=== PATIENT | female | born 1960 | race Caucasian/White ===

== ENCOUNTER → 2017-11-15 17:01 | Outpatient (CLI) | payer OTHER, SELFPAY | PROVIDERS: Visit Provider Physician Assistant | DX: L03.90 Cellulitis, unspecified (principal) | CPT/HCPCS: 87070; 87075; 87077; 87147; 87186; 87205 ==

== ENCOUNTER → 2018-07-12 17:55 | Outpatient (CLI) | payer OTHER, SELFPAY ==
--- NOTE | 2018-07-12 17:58 | DI.RAD.S_ITS ---
PROCEDURE: XR KNEE LT 1TO2V INDICATIONS: pain, swelling Left knee TECHNIQUE: 3 views of the knee were acquired. COMPARISON: None. FINDINGS: Bones: No fractures or dislocations. No suspicious bony lesions. Degenerative spurring. No joint space narrowing Soft tissues: No joint effusion. No suspicious soft tissue calcifications. IMPRESSION: Mild degenerative changes. If the patient's pain or other symptoms persist, consider further evaluation with MRI Dictated by: Mike Agustin M.D. on 07/13/2018 at 8:48 Approved by: Mike Agustin M.D. on 07/13/2018 at 8:50
== END ==
PROVIDERS: PCP Family Medicine
DX: M25.562 Pain in left knee (principal); M25.462 Effusion, left knee; C57.00 Malignant neoplasm of unspecified fallopian tube
CPT/HCPCS: 73560

== ENCOUNTER 2019-04-10 07:08 | Emergency (ER) | payer OTHER, SELFPAY ==
[2019-04-10] VITALS (7 sets, daily range): BP systolic 156–226; BP diastolic 72–107; PULSE 60–76; RESP 15–16; TEMP 36.9; O2SAT 95–98; BMI 27.4
--- NOTE | 2019-04-10 07:40 | ED_ITS ---
HPI - General Adult General Chief complaint: Hypertension Stated complaint: head pain/blood pressure 178/120 Time Seen by Provider: 04/10/19 07:22 Source: patient Mode of arrival: EMS Limitations: no limitations History of Present Illness HPI narrative: Patient comes emergency department complaining of a bad headache for the last several days. She also states that her blood pressure has been very high. 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 The patient states she has been told but both the headaches and the blood pressure are known side effects of the Avastin. She was started on lisinopril by Dr. Solano and a few weeks ago, had her dose doubled to 20 mg daily. She states, however, that it does not seem to be helping, and then actually, her blood pressure is worse now. She states she was perfectly healthy before being diagnosed with cancer 7 and half years ago, and never had an issue with hypertension. The patient denies any numbness, tingling, or weakness. No visual changes or slurred speech. The patient denies any chest pain or shortness of breath, though she does state that sometimes when her blood pressure goes up, she gets a throbbing feeling in her chest. She states that her headache today, as is typical, is located mainly on her left side. She states it seems worse than usual, but is of the same character as prior headaches. No other complaints at this time. Related Data Home Medications Medication Instructions Recorded Confirmed aspirin 81 mg tablet,delayed 81 mg PO DAILY 11/15/17 03/07/19 release docusate sodium 50 mg capsule 50 mg PO DAILY 01/26/18 03/07/19 ferrous sulfate 325 mg (65 mg 325 mg PO DAILY tab 01/26/18 03/07/19 iron) tablet ondansetron HCl 4 mg tablet 4 mg PO BID-TID PRN 01/26/18 03/07/19 omeprazole 40 mg PO DAILY 02/14/19 03/07/19 Previous Rx's Medication Instructions Recorded amlodipine 5 mg PO DAILY #30 tab 05/17/18 lidocaine-prilocaine 1 ea TOPICAL DAILY #30 g 11/02/18 lisinopril 20 mg PO DAILY #30 tab 03/07/19 Allergies Allergy/AdvReac Type Severity Reaction Status Date / Time paclitaxel Allergy Severe chemical Verified 04/10/19 07:20 hepatitis sulfite Allergy Severe Anaphylaxis Verified 04/10/19 07:20 sulfamethoxazole Allergy rash and Verified 04/10/19 07:20 [From Bactrim] hives trimethoprim [From Bactrim] Allergy rash and Verified 04/10/19 07:20 hives Review of Systems Constitutional Constitutional: Denies chills, Denies fatigue, Denies fever(s), Denies frequent falls, Reports headache(s), Denies lethargy and Denies weakness Eyes Eyes: Denies change in vision, Denies eye discharge, Denies irritation and Denies loss of vision ENT Ears, Nose, Mouth, and Throat: Denies change in voice, Denies dizziness, Reports headache(s), Denies neck pain, Denies sore throat and Denies throat swelling Cardiovascular Cardiovascular: Denies chest pain, Denies irregular heart rhythm, Denies lightheadedness, Denies palpitations, Denies dyspnea, Denies dyspnea on exertion and Denies orthopnea Respiratory Respiratory: Denies cough, Denies dyspnea, Denies dyspnea on exertion and Denies wheezing Gastrointestinal Gastrointestinal: Denies abdominal pain, Denies change in bowel habits, Denies diarrhea, Denies nausea and Denies vomiting Genitourinary Genitourinary: Denies hematuria, Denies flank pain, Denies urinary incontinence and Denies urinary urgency Musculoskeletal Musculoskeletal: Denies back pain, Denies muscle weakness, Denies neck pain, Denies numbness and Denies tingling Integumentary/Breasts Skin/Breast: Denies pruritus, Denies erythema, Denies rash and Denies wounds Neurologic Neurologic: Denies behavioral changes, Denies confusion, Denies dizziness, Denies frequent falls, Reports headache(s), Denies loss of vision, Denies numbness, Denies tingling and Denies weakness Psychiatric Psychiatric: Denies anxiety, Denies behavioral changes, Denies confusion, Denies depression, Denies homicidal ideation and Denies suicidal ideation Endocrine Endocrine: Denies fatigue, Denies flushing and Denies palpitations Hematologic/Lymphatic Hematologic/Lymphatic: Denies easy bruising Allergic/Immunologic Allergic/Immunologic: Denies urticaria, Denies throat swelling and Denies wheezing Patient History Medical History (Updated 04/10/19 @ 10:06 by Johanna Blue MD) Cancer of fallopian tube (Acute) HTN (hypertension) (Acute) Surgical History H/O pelvic surgery (Acute) Social History Smoking Status: Never smoker alcohol intake: current (Rare) Smoking Status: Never smoker Exam Initial Vital Signs Initial Vital Signs: Vital Signs Temperature 98.4 F 04/10/19 07:17 Pulse Rate 76 04/10/19 07:17 Respiratory Rate 16 04/10/19 07:17 Blood Pressure 226/107 H 04/10/19 07:17 Pulse Oximetry 98 04/10/19 07:17 Const General: cooperative and well developed Nutritional Appearance: well nourished Orientation: alert, awake, oriented x3 and not confused HENMT Head: normocephalic and atraumatic Ears: external ears normal Nose: external nose normal and No nasal discharge Face and sinus: face symmetric and No dry mucous membranes Mouth: oral mucosae normal and moist mucous membranes Teeth and gingiva: dentition normal Eyes General: appearance normal, both eyes and all related structures Eyelids: eyelids normal Conjunctivae: conjunctivae normal Sclera: sclerae normal Pupils: PERRL EOM: EOM intact bilaterally Neck Neck: normal visual inspection, trachea midline, No lymphadenopathy, No midline deformity and No JVD Lymphatic: No lymphedema Chest Chest: normal inspection of the chest Resp Effort & Inspection: normal respiratory effort, able to speak in complete sentences, no respiratory distress and no use of accessory muscles Auscultation: clear to auscultation bilaterally, no rales, no rhonchi and no wheezes Cardio Rate: regular rate Rhythm: regular rhythm Heart Sounds: no click, no gallops, no murmurs and no rubs Pulses: normal peripheral pulses GI Inspection: non-distended Palpation: soft, no hepatosplenomegaly, No guarding, No pulsatile mass and No tender Auscultation: normal bowel sounds Back/Spine/Pelvis Back: No CVA tenderness Cervical Spine: cervical ROM normal and No pain with cervical ROM Thoracic/Lumbar Spine: thoracic and lumbar spine normal to inspection Skin General: no rashes or lesions noted, No jaundice and No petechiae Neuro General: alert, oriented x3, gait normal and no focal motor deficits Speech: speech normal Extrem General: full ROM, no clubbing, cyanosis or edema, no pedal edema and no calf tenderness Psych Appearance: well kempt Mental Status: mental status grossly normal Attitude: cooperative Thought Content: normal and suicidality Judgment: judgment good Course Course Course Narrative: Patient was treated symptomatically for her headache and her blood pressure, which was quite high in the emergency department. Her blood pressure did improve nicely in the ED, and I did discuss with her that we would go ahead and double her lisinopril. The patient has an upcoming appointment with Dr. Solano in the near future, at which time further adjustments to the p atient's antihypertensive regimen can be discussed. We've discussed home management of symptoms, as well as the usual indications for return. Orders Ordered: Discontinued Medications Hydromorphone HCl (Dilaudid) 0.5 mg IV NOW ONE Stop: 04/10/19 07:39 Last Admin: 04/10/19 07:56 Dose: 0.5 mg Documented by: DOMINIQUE Hydromorphone HCl (Dilaudid) 0.5 mg IV NOW ONE Stop: 04/10/19 10:02 Last Admin: 04/10/19 10:10 Dose: 0.5 mg Documented by: DOMINIQUE Sodium Chloride (Normal Saline 0.9%) 1,000 mls @ 1,000 mls/hr IV BOLUS ONE Stop: 04/10/19 08:37 Last Infusion: 04/10/19 09:33 Dose: 0 mls/hr Documented by: Admin: 04/10/19 07:55 Dose: 1,000 mls/hr Documented by: DOMINIQUE Ketorolac Tromethamine (Toradol) 30 mg IV NOW ONE Stop: 04/10/19 07:39 Last Admin: 04/10/19 07:56 Dose: 30 mg Documented by: DOMINIQUE Labetalol HCl (Trandate) 20 mg IV NOW ONE Stop: 04/10/19 07:39 Last Admin: 04/10/19 07:56 Dose: 20 mg Documented by: DOMINIQUE Ondansetron HCl (Zofran) 4 mg IV NOW ONE Stop: 04/10/19 07:39 Last Admin: 04/10/19 07:56 Dose: 4 mg Documented by: DOMINIQUE Vital Signs Vital signs: Vital Signs - 8 hr 04/10/19 07:17 Temperature 98.4 F Pulse Rate 76 Respiratory Rate 16 Blood Pressure 226/107 H Pulse Oximetry 98 Medical Decision Making Medical Records Medical records reviewed: Yes I reviewed the patient's medical records. Discharge Plan Departure Patient Disposition: Home Clinical Impression: HTN (hypertension) Qualifiers: Hypertension type: other secondary hypertension Qualified Code(s): I15.8 - Other secondary hypertension Cancer of fallopian tube Qualifiers: Laterality: unspecified laterality Qualified Code(s): C57.00 - Malignant neoplasm of unspecified fallopian tube Headache Qualifiers: Headache type: unspecified Headache chronicity pattern: acute headache Intractability: not intractable Qualified Code(s): R51 - Headache Discharge Date/Time: 04/10/19 11:09 Instructions: DI for High Blood Pressure Activity Restrictions/Additional Instructions: We will plan to increase your lisinopril dose to 40 mg daily. Please discuss your blood pressure issues with Dr. Solano when you see him next week. Prescriptions: No Action aspirin [Adult Low Dose Aspirin] 81 mg tablet,delayed release (DR/EC) 81 mg PO DAILY RF: 0 ondansetron HCl [Zofran] 4 mg tablet 4 mg PO BID-TID PRN (Reason: Nausea) RF: 0 ferrous sulfate 325 mg (65 mg iron) tablet 325 mg PO DAILY RF: 0 docusate sodium 50 mg capsule 50 mg PO DAILY RF: 0 amlodipine 5 mg Tablet 5 mg PO DAILY Qty: 30 RF: 3 lidocaine-prilocaine 2.5-2.5 % Cream 1 ea topical DAILY Qty: 30 RF: 1 omeprazole 40 mg Capsule,Delayed Release(Dr/Ec) 40 mg PO DAILY RF: 0 lisinopril 20 mg Tablet 20 mg PO DAILY Qty: 30 RF: 6 Referrals: Blanka Ureña DO [Primary Care Provider] -
[2019-04-10] MEDS: SODIUM CHLORIDE 0.9% 1,000 ML 1000 ML IV (07:55)
[2019-04-10] MEDS: KETOROLAC 60 MG/2 ML VIAL 30 MG IV (07:56)
[2019-04-10] MEDS: LABETALOL 20 MG/4 ML SYRINGE IV (07:56)
[2019-04-10] MEDS: HYDROMORPHONE 0.5 MG INJ IV ×2 (07:56→10:10)
[2019-04-10] MEDS: ONDANSETRON 4 MG/2 ML INJ IV (07:56)
== END 2019-04-10 11:09 | disposition home or self-care (01) ==
PROVIDERS: Emergency Provider Emergency Medicine; Family Provider Family Medicine; PCP Family Medicine
DX: I10 Essential (primary) hypertension (principal); R51 Headache; C57.00 Malignant neoplasm of unspecified fallopian tube
CPT/HCPCS: 36415; 93005; 96361; 96374; 96375; 96376; 99284; J1170; J1642; J1885; J2405

== ENCOUNTER 2019-04-14 18:17 | Emergency (ER) | payer OTHER, SELFPAY ==
[2019-04-14 18:24] VITALS: BP 204/98; PULSE 70; RESP 20; TEMP 36.4; O2SAT 99; BMI 27.4
--- NOTE | 2019-04-14 18:45 | ED_ITS ---
HPI - General Adult General Chief complaint: Hypertension Stated complaint: HIGH BLOOD PRESSURE PAIN Time Seen by Provider: 04/14/19 18:32 Source: patient Mode of arrival: Family Vehicle Limitations: no limitations History of Present Illness HPI narrative: 58-year-old female with a history of dag coater cancer. Is currently on a medication for this through Oncology. She was told that this medication frequently causes high blood pressure and headaches. Has had headaches in the past. Has been seen here in the emergency department within the past 2 weeks for headache. Was given medications which seemed to improve it. She is also on blood pressure medication. She was seen by another provider earlier today because she has had consistent elevations in her blood pressure. Was given a prescription for 2nd blood pressure medication which she was at the pharmacy today filling when she had a fairly sudden onset of left-sided headache. She states that this headache is like her typical headaches just worse. Does have light sensitivity. Related Data Home Medications Medication Instructions Recorded Confirmed aspirin 81 mg tablet,delayed 81 mg PO DAILY 11/15/17 04/14/19 release docusate sodium 50 mg capsule 50 mg PO DAILY 01/26/18 04/14/19 ferrous sulfate 325 mg (65 mg 325 mg PO DAILY tab 01/26/18 04/14/19 iron) tablet ondansetron HCl 4 mg tablet 4 mg PO BID-TID PRN 01/26/18 04/14/19 omeprazole 40 mg PO DAILY 02/14/19 04/14/19 lisinopril 20 mg tablet 20 mg PO DAILY tab 04/14/19 Previous Rx's Medication Instructions Recorded lidocaine-prilocaine 1 ea TOPICAL DAILY #30 g 11/02/18 amoxicillin 500 mg capsule 500 mg PO TID #30 cap 04/14/19 lisinopril 20 mg tablet 20 mg PO BID #180 tab 04/14/19 metoprolol succinate 25 mg 25 mg PO BEDTIME #30 tab 04/14/19 tablet,extended release 24 hr Allergies Allergy/AdvReac Type Severity Reaction Status Date / Time paclitaxel Allergy Severe chemical Verified 04/14/19 18:28 hepatitis sulfite Allergy Severe Anaphylaxis Verified 04/14/19 18:28 sulfamethoxazole Allergy rash and Verified 04/14/19 18:28 [From Bactrim] hives trimethoprim [From Bactrim] Allergy rash and Verified 04/14/19 18:28 hives Review of Systems Constitutional Constitutional: Denies fever(s) and Reports headache(s) Eyes Eyes: Reports photophobia ENT Ears, Nose, Mouth, and Throat: Reports headache(s) Cardiovascular Cardiovascular: Denies chest pain and Denies dyspnea Respiratory Respiratory: Denies dyspnea Gastrointestinal Gastrointestinal: Denies abdominal pain and Reports nausea Musculoskeletal Musculoskeletal: Denies myalgias and Denies arthralgias Integumentary/Breasts Skin/Breast: Denies rash Neurologic Neurologic: Denies behavioral changes and Reports headache(s) Psychiatric Psychiatric: Denies behavioral changes Hematologic/Lymphatic Hematologic/Lymphatic: Denies easy bleeding and Denies easy bruising Patient History Medical History Cancer of fallopian tube (Acute) HTN (hypertension) (Acute) Social History Smoking Status: Never smoker alcohol intake: current (Rare) Smoking Status: Never smoker alcohol intake frequency: 0-2 drinks per day Substance Use Type: does not use Exam Initial Vital Signs Initial Vital Signs: Vital Signs Temperature 97.6 F 04/14/19 18:24 Pulse Rate 70 04/14/19 18:24 Respiratory Rate 20 04/14/19 18:24 Blood Pressure 204/98 H 04/14/19 18:24 Pulse Oximetry 99 04/14/19 18:24 Const General: cooperative, well developed and well groomed Limitations: mental status not altered HENMT Head: normal to inspection and normocephalic Resp Effort & Inspection: normal respiratory effort Cardio Rate: regular rate Skin Lesions: no lesions Rashes: no rashes Neuro General: alert, awake and oriented x3 Cranial Nerves: CN's II-XI intact bilaterally Cognition: normal cognition Speech: speech normal Motor: muscle tone normal throughout Extrem General: normal to inspection and capillary refill normal Psych Appearance: well kempt Scores GCS [place] coma scale eye opening: Spontaneous [place] coma scale verbal response: Orientated [place] coma scale motor response: Obey commands [place] coma scale total score: 15 Course Orders Ordered: ED Orders 04/14/19 18:52 CT head/brain wo con Stat 04/14/19 18:59 EKG-12 Lead Stat 04/14/19 19:25 Complete Blood Count AUTO DIFF Stat Comprehensive Metabolic Panel Stat Lipase Stat Discontinued Medications Diphenhydramine HCl (Benadryl) 25 mg IV NOW ONE Stop: 04/14/19 18:51 Last Admin: 04/14/19 19:37 Dose: 25 mg Documented by: AMEENA Heparin Sodium (Porcine) (Heparin Flush (Port)) 500 unit IV PRN PRN PRN Reason: Flush Last Admin: 04/14/19 21:25 Dose: 500 unit Documented by: AMEENA Hydromorphone HCl (Dilaudid) 1 mg IV NOW ONE Stop: 04/14/19 20:37 Last Admin: 04/14/19 20:45 Dose: 1 mg Documented by: AMEENA Sodium Chloride (Normal Saline 0.9%) 1,000 mls @ 1,000 mls/hr IV BOLUS ONE Stop: 04/14/19 19:49 Last Infusion: 04/14/19 21:20 Dose: 0 mls/hr Documented by: Admin: 04/14/19 19:37 Dose: 1,000 mls/hr Documented by: AMEENA Lidocaine HCl (Xylocaine 1% (Pf)) 2 ml INJ NOW ONE Stop: 04/14/19 19:09 Last Admin: 04/14/19 19:38 Dose: 0.5 ml Documented by: AMEENA Metoclopramide HCl (Reglan) 10 mg IV NOW ONE Stop: 04/14/19 18:51 Last Admin: 04/14/19 19:37 Dose: 10 mg Documented by: AMEENA Vital Signs Vital signs: Vital Signs - 8 hr 04/14/19 18:24 04/14/19 19:39 04/14/19 20:47 Temperature 97.6 F Pulse Rate 70 79 69 Respiratory Rate 20 20 Blood Pressure 204/98 H Blood Pressure [Left Arm] 194/98 H 184/91 H Pulse Oximetry 99 100 98 04/14/19 21:34 Temperature Pulse Rate 70 Respiratory Rate 18 Blood Pressure 161/75 H Blood Pressure [Left Arm] Pulse Oximetry 97 Medical Decision Making Lab Data Lab results reviewed: Yes I reviewed the patient's lab results. Result diagrams: 04/14/19 19:25 04/14/19 19:25 Labs: Lab Results 04/14/19 04/14/19 Range/Units 19:25 19:25 WBC 6.8 (4.5-11.0) X10^3/uL RBC 5.16 (4.0-5.2) X10^6/uL Hgb 13.3 (12.0-16.0) g/dL Hct 40.0 (36-46) % MCV 77.5 L (80-100) fL MCH 25.8 L (26-34) PG MCHC 33.3 (30-36) % RDW 13.2 (11.6-14.8) % Plt Count 210 (150-400) X10^3/uL Neut % (Auto) 72.9 (50-75) % Lymph % (Auto) 17.2 L (25-40) % [place] % (Auto) 8.0 (3-14) % Eos % (Auto) 1.0 L (2-4) % Baso % (Auto) 0.9 (0-2) % Neut # (Auto) 4900 (0123-1599) /uL Lymph # (Auto) 1200 (4698-6580) /uL [place] # (Auto) 500 (0-900) /uL Eos # (Auto) 100 (0-450) /uL Baso # (Auto) 100 (0-100) /uL Sodium 134 L (137-145) mmol/L Potassium 3.7 (3.4-5.1) mmol/L Chloride 98 (98-107) mmol/L Carbon Dioxide 23 (22-32) mmol/L BUN 15 (7-17) mg/dL Creatinine 0.70 (0.52-1.04) mg/dL Estimated GFR > 60.0 (>60) mL/min BUN/Creatinine Ratio 21.4 (6-22) Glucose 112 H (70-100) mg/dL Calcium 9.8 (8.4-10.2) mg/dL Total Bilirubin 0.3 (0.2-1.3) mg/dL AST 40 H (14-36) IU/L ALT 38 H (<35) IU/L Alkaline Phosphatase 90 (38-126) U/L Total Protein 7.8 (6.3-8.2) g/dL Albumin 4.5 (3.5-5.0) g/dL Globulin 3.3 (1.7-4.1) g/dL Albumin/Globulin Ratio 1.4 (1.0-2.8) Lipase 127 (23-300) U/L Imaging Data CT scan - head: Radiologist's Impression: [address] [address] [address] Scan Report Signed Patient: Maura Ramirez RMR#: [id number] : 1960Acct:[id number] Age/Sex: 58 / FDate of Service: 04/14/19 Loc: ED Accession Number: [id number] Procedure: CT head/brain wo con Ordering Provider: Freedom Caballero D.O. PROCEDURE: CT HEAD/BRAIN WO CON INDICATIONS: Headache, hypertension, eval for SAH TECHNIQUE: Noncontrast 4.5 mm thick angled axial sections acquired from the foramen magnum to the vertex, with coronal and sagittal reformats. For radiation dose reduction, the following was used: automated exposure control, adjustment of mA and/or kV according to patient size. COMPARISON: None. FINDINGS: Image quality: Excellent. CSF spaces: Basal cisterns are patent. No extra-axial fluid collections. Ventricles are normal in size and shape. Brain: No midline shift. No intracranial masses or hemorrhage. Lee-white matter interface is normal. Skull and face: Calvarium and visualized facial bones are intact, without suspicious lesions. Sinuses: Visualized sinuses and mastoids are clear. IMPRESSION: No acute intracranial findings. Dictated by: Barbra Khan M.D. on 04/14/2019 at 19:16 Approved by: Barbra Khan M.D. on 04/14/2019 at 19:1 ECG Data Attestation: I personally reviewed and interpreted this ECG as follows: Prior ECG tracings: not available for review Interpretation: Sinus rhythm Ventricular rate is 65 Normal axis Normal QRS Normal QTC Nonspecific ST T wave changes MDM Narrative Medical decision making narrative: Patient with a fairly sudden onset of left- sided headache. She is also hypertensive. She did state that this headache feels like prior headaches in character but just worse. Given the sudden onset of the headache and the fact that she is hypertensive a head CT was performed for evaluation of subarachnoid hemorrhage. This was done within 6 hours of the onset of the headache and is unremarkable. Her medic rate is greater than 30. She initially minimal improvement with medications. Was then given Toradol whic h did seem to help her headache all that much and then was given Dilaudid. She states this took her headache completely away. Her blood pressure also improved after her headache improved. I do suspect that the elevation of blood pressure is secondary to a baseline elevation complicated by the pain associated with the headache. Does appear that the headaches are also related to the cancer medic ations she is currently taking. We did discuss taking her blood pressure at home. We will hold on a lumbar puncture for now. She was given return precautions and follow-up instructions. She expressed understanding and agreement plan. Discharge Plan Departure Patient Disposition: Home Clinical Impression: HTN (hypertension) Qualifiers: Hypertension type: unspecified Qualified Code(s): I10 - Essential (primary) hypertension Headache Qualifiers: Headache type: unspecified Headache chronicity pattern: unspecified pattern Intractability: not intractable Qualified Code(s): R51 - Headache Discharge Date/Time: 04/14/19 21:37 Instructions: DI for High Blood Pressure Activity Restrictions/Additional Instructions: Continue all of your medications as directed. Keep all of your scheduled med [facility] appointments. Return to the emergency department for any new or worsening symptoms Prescriptions: No Action aspirin [Adult Low Dose Aspirin] 81 mg tablet,delayed release (DR/EC) 81 mg PO DAILY RF: 0 ondansetron HCl [Zofran] 4 mg tablet 4 mg PO BID-TID PRN (Reason: Nausea) RF: 0 ferrous sulfate 325 mg (65 mg iron) tablet 325 mg PO DAILY RF: 0 docusate sodium 50 mg capsule 50 mg PO DAILY RF: 0 lisinopril 20 mg tablet 20 mg PO DAILY RF: 0 metoprolol succinate 25 mg tablet extended release 24 hr 25 mg PO BEDTIME Qty: 30 RF: 1 amoxicillin 500 mg capsule 500 mg PO TID Qty: 30 RF: 0 lisinopril 20 mg tablet 20 mg PO BID Qty: 180 RF: 1 lidocaine-prilocaine 2.5-2.5 % Cream 1 ea topical DAILY Qty: 30 RF: 1 omeprazole 40 mg Capsule,Delayed Release(Dr/Ec) 40 mg PO DAILY RF: 0 Referrals: Blanka Ureña DO [Primary Care Provider] -
--- NOTE | 2019-04-14 18:52 | DI.CT.S_ITS ---
PROCEDURE: CT HEAD/BRAIN WO CON INDICATIONS: Headache, hypertension, eval for SAH TECHNIQUE: Noncontrast 4.5 mm thick angled axial sections acquired from the foramen magnum to the vertex, with coronal and sagittal reformats. For radiation dose reduction, the following was used: automated exposure control, adjustment of mA and/or kV according to patient size. COMPARISON: None. FINDINGS: Image quality: Excellent. CSF spaces: Basal cisterns are patent. No extra-axial fluid collections. Ventricles are normal in size and shape. Brain: No midline shift. No intracranial masses or hemorrhage. Lee-white matter interface is normal. Skull and face: Calvarium and visualized facial bones are intact, without suspicious lesions. Sinuses: Visualized sinuses and mastoids are clear. IMPRESSION: No acute intracranial findings. Dictated by: Barbra Khan M.D. on 04/14/2019 at 19:16 Approved by: Barbra Khan M.D. on 04/14/2019 at 19:17
[2019-04-14 19:34] LABS: Add Manual Diff / Slide Review NO; Basophils Absolute Auto 100 /uL (0-100); Basophils Percent Auto 0.9 % (0-2); Eosinophils Absolute Auto 100 /uL (0-450); Hemoglobin 13.3 g/dL (12.0-16.0); Lymphocytes Absolute Auto 1200 /uL (1100-4500); Lymphocytes Percent Auto 17.2 % (25-40); Mean Corpuscular HGB Conc 33.3 % (30-36); Mean Corpuscular Hemoglobin 25.8 PG (26-34); Mean Corpuscular Volume 77.5 fL (80-100); Monocytes Absolute Auto 500 /uL (0-900); Neutrophils Absolute Auto 4900 /uL (1500-7000); Neutrophils Percent Auto 72.9 % (50-75); Platelet Count 210 X10^3/uL (150-400); Red Blood Cell Count 5.16 X10^6/uL (4.0-5.2); Red Cell Distribution Width 13.2 % (11.6-14.8); White Blood Cell Count 6.8 X10^3/uL (4.5-11.0)
[2019-04-14] MEDS: diphenhydrAMINE 50 MG/ML VIAL 25 MG IV (19:37)
[2019-04-14] MEDS: SODIUM CHLORIDE 0.9% 1,000 ML 1000 ML IV (19:37)
[2019-04-14] MEDS: METOCLOPRAMIDE 10 MG/2 ML INJ IV (19:37)
[2019-04-14] MEDS: LIDOCAINE 1% (PF) 2 ML INJ (19:38)
[2019-04-14 19:39] VITALS: BP 194/98; PULSE 79; RESP 20; O2SAT 100
[2019-04-14 19:47] LABS: Alanine Aminotransferase 38 IU/L (<35); Albumin 4.5 g/dL (3.5-5.0); Albumin Globulin Ratio 1.4 (1.0-2.8); Alkaline Phosphatase 90 U/L (38-126); Aspartate Aminotransferase 40 IU/L (14-36); BUN Creatinine Ratio 21.4 (6-22); Bilirubin Total 0.3 mg/dL (0.2-1.3); Blood Urea Nitrogen 15 mg/dL (7-17); Calcium 9.8 mg/dL (8.4-10.2); Carbon Dioxide 23 mmol/L (22-32); Chloride 98 mmol/L (98-107); Estimated Glomerular Filt Rate > 60.0 mL/min (>60); Globulin 3.3 g/dL (1.7-4.1); Glucose 112 mg/dL (70-100); HEMOLYSIS < 15 (0-50); Lipase 127 U/L (23-300); Potassium 3.7 mmol/L (3.4-5.1); Sodium 134 mmol/L (137-145); Total Protein 7.8 g/dL (6.3-8.2)
[2019-04-14] MEDS: HYDROMORPHONE 1 MG INJ IV (20:45)
[2019-04-14 20:47] VITALS: BP 184/91; PULSE 69; O2SAT 98
[2019-04-14 21:34] VITALS: BP 161/75; PULSE 70; RESP 18; O2SAT 97
== END 2019-04-14 21:37 | disposition home or self-care (01) ==
PROVIDERS: Emergency Provider Emergency Medicine; Family Provider Family Medicine; PCP Family Medicine
DX: I10 Essential (primary) hypertension (principal); R51 Headache; C57.00 Malignant neoplasm of unspecified fallopian tube
CPT/HCPCS: 36415; 70450; 80053; 83690; 85025; 93005; 96361; 96374; 96375; 99284; 99285; J1170; J1200; J1642; J2765

== ENCOUNTER 2020-04-15 20:16 | Emergency (ER) | payer OTHER, SELFPAY ==
[2020-04-15 20:22] VITALS: BP 180/97; PULSE 75; RESP 20; TEMP 37.6; O2SAT 97
[2020-04-15 21:04] LABS: Add Manual Diff / Slide Review NO; Basophils Absolute Auto 100 /uL (0-100); Basophils Percent Auto 1.3 % (0-2); Eosinophils Absolute Auto 500 /uL (0-450); Hematocrit 35.3 % (36-46); Hemoglobin 11.5 g/dL (12.0-16.0); Lymphocytes Absolute Auto 1600 /uL (1100-4500); Lymphocytes Percent Auto 18.9 % (25-40); Mean Corpuscular HGB Conc 32.7 % (30-36); Mean Corpuscular Hemoglobin 24.6 PG (26-34); Mean Corpuscular Volume 75.3 fL (80-100); Monocytes Absolute Auto 500 /uL (0-900); Monocytes Percent Auto 6.6 % (3-14); Neutrophils Absolute Auto 5500 /uL (1500-7000); Neutrophils Percent Auto 67.2 % (50-75); Platelet Count 250 X10^3/uL (150-400); Red Cell Distribution Width 13.5 % (11.6-14.8); White Blood Cell Count 8.3 X10^3/uL (4.5-11.0)
[2020-04-15 21:06] VITALS: PULSE 84; RESP 20; O2SAT 99
[2020-04-15 21:17] LABS: Alanine Aminotransferase 18 IU/L (<35); Albumin Globulin Ratio 1.1 (1.0-2.8); Alkaline Phosphatase 72 U/L (38-126); Aspartate Aminotransferase 26 IU/L (14-36); BUN Creatinine Ratio 20.6 (6-22); Bilirubin Total 0.2 mg/dL (0.2-1.3); Blood Urea Nitrogen 14 mg/dL (7-17); Calcium 9.1 mg/dL (8.4-10.2); Carbon Dioxide 27 mmol/L (22-32); Chloride 96 mmol/L (98-107); Estimated Glomerular Filt Rate > 60.0 mL/min (>60); Globulin 3.5 g/dL (1.7-4.1); Glucose 102 mg/dL (70-100); HEMOLYSIS < 15 (0-50); Potassium 4.1 mmol/L (3.4-5.1); Sodium 128 mmol/L (137-145); Total Protein 7.5 g/dL (6.3-8.2)
[2020-04-15 21:34] LABS: COVID19 -Nasal RAPID Negative (Negative)
[2020-04-15 21:50] LABS: Creatine Kinase 71 U/L (30-135)
[2020-04-15 22:03] LABS: Troponin I < 0.012 ng/mL (0.01-0.034)
--- NOTE | 2020-04-15 22:15 | ED_ITS ---
HPI - General Adult General Chief complaint: Shortness of Breath/Dyspnea Stated complaint: HARD TIME BREATHING Time Seen by Provider: 04/15/20 20:39 Source: patient and family Mode of arrival: Ambulatory Limitations: no limitations History of Present Illness HPI narrative: Patient is a 59-year-old female. Has a history of fallopian tube cancer. Is currently under the care of local oncology and also the [facility]. She is here for evaluation of shortness of breath. She states that for the past several days/week she has had episodes where she has become very short of breath. She states that it causes her to have a hard time laying flat. It does not seem to last for an extended period of time and after the episode passes she is able to lay flat to get sleep. She states that it does occur during the day and in the evening. She denies any fevers. No chest pain. Has had a cough. She stated that she did bring this up to her oncologist when she had an appointment with him approximately 1 week ago. She stated that he advised that she go see your nose and throat as there was concern about a potential postnasal drip and sinus issues. She is scheduled to see her oncologist at [facility] at the beginning of next week and is scheduled to have routine CT scan of her chest abdomen pelvis for screening purposes given her cancer. She denies any lower extremity swelling. Has tried cough drops without any improvement. Related Data Home Medications Medication Instructions Recorded Confirmed aspirin 81 mg tablet,delayed 81 mg PO DAILY 11/15/17 02/08/20 release docusate sodium 50 mg capsule 50 mg PO PRN PRN 01/26/18 02/08/20 ondansetron HCl 4 mg tablet 4 mg PO BID-TID PRN 01/26/18 02/08/20 omeprazole 40 mg PO DAILY 02/14/19 02/08/20 Previous Rx's Medication Instructions Recorded lidocaine-prilocaine 1 ea TOPICAL DAILY #30 g 10/26/19 lisinopril 20 mg tablet See Rx Instructions .ROUTE 11/06/19 .COMPLEX #180 tab metoprolol succinate 50 mg See Rx Instructions .ROUTE 11/06/19 tablet,extended release 24 hr .COMPLEX #180 tab lisinopril 5 mg tablet 5 mg PO BID #180 tab 11/11/19 benzonatate [Tessalon Perles] 100 mg PO TID PRN #30 cap 04/15/20 Allergies Allergy/AdvReac Type Severity Reaction Status Date / Time paclitaxel Allergy Severe chemical Verified 04/28/19 16:39 hepatitis sulfite Allergy Severe Anaphylaxis Verified 04/28/19 16:39 sulfamethoxazole Allergy rash and Verified 04/28/19 16:39 [From Bactrim] hives trimethoprim [From Bactrim] Allergy rash and Verified 04/28/19 16:39 hives Review of Systems Constitutional Constitutional: Denies fever(s) Cardiovascular Cardiovascular: Denies chest pain and Reports dyspnea Respiratory Respiratory: Reports cough and Reports dyspnea Gastrointestinal Gastrointestinal: Denies abdominal pain, Denies nausea and Reports vomiting (When she gets into coughing fits) Genitourinary Genitourinary: Denies dysuria Genitourinary: Denies dysuria Musculoskeletal Musculoskeletal: Denies arthralgias and Denies myalgias Integumentary/Breasts Skin/Breast: Denies rash Neurologic Neurologic: Denies behavioral changes Psychiatric Psychiatric: Denies behavioral changes Hematologic/Lymphatic Hematologic/Lymphatic: Denies easy bleeding and Denies easy bruising On Anticoagulants: No Allergic/Immunologic Allergic/Immunologic: Denies urticaria Patient History Medical History Cancer of fallopian tube HTN (hypertension) Surgical History (Updated 05/09/19 @ 14:39 by Cindi Chu MD) H/O pelvic surgery Social History Smoking Status: Never smoker alcohol intake: current (Rare) Smoking Status: Never smoker alcohol intake frequency: 0-2 drinks per day Substance Use Type: does not use Exam Initial Vital Signs Initial Vital Signs: Vital Signs Temperature 99.6 F 04/15/20 20:22 Pulse Rate 75 04/15/20 20:22 Respiratory Rate 20 04/15/20 20:22 Blood Pressure 180/97 H 04/15/20 20:22 Pulse Oximetry 97 04/15/20 20:22 Const General: cooperative and comfortable Limitations: mental status not altered HENMT Head: normal to inspection and normocephalic Resp Effort & Inspection: normal respiratory effort, not labored and not tachypneic Auscultation: clear to auscultation bilaterally Cardio Rate: regular rate Rhythm: regular rhythm GI Inspection: non-distended Palpation: soft Skin Lesions: no lesions Rashes: no rashes Neuro General: patient alert and patient awake Cognition: normal cognition Speech: speech normal Extrem General: normal to inspection, capillary refill normal and No edema Psych Appearance: grossly normal and well kempt Scores GCS [place] coma scale eye opening: Spontaneous [place] coma scale verbal response: Orientated [place] coma scale motor response: Obey commands [place] coma scale total score: 15 Course Orders Ordered: ED Orders 04/15/20 20:31 EKG-12 Lead Stat Measure peak expiratory flow ONCE RT Consult Eval and Treat Now 04/15/20 20:55 Complete Blood Count AUTO DIFF Stat Comprehensive Metabolic Panel Stat Lactate (Lactic Acid) Stat Troponin & CK Cardiac Panel Stat 04/15/20 21:10 COVID19 Stat 04/15/20 22:16 CT abdomen pelvis w con Stat CT angio chest PE protocol Stat Discontinued Medications Heparin Sodium (Porcine) (Heparin 500 Unit/5 Ml Port Flush) 500 unit IV PRN PRN PRN Reason: Flush Sodium Chloride (Normal Saline 0.9%) 1,000 mls @ 500 mls/hr IV BOLUS ONE Stop: 04/16/20 00:14 Last Infusion: 04/16/20 00:13 Dose: 0 mls/hr Documented by: Admin: 04/15/20 22:30 Dose: 500 mls/hr Documented by: HAYLEY Vital Signs Vital signs: Vital Signs - 8 hr 04/15/20 20:22 04/15/20 21:06 04/16/20 00:14 Temperature 99.6 F Pulse Rate 75 84 71 Respiratory Rate 20 20 18 Blood Pressure 180/97 H 172/79 H Pulse Oximetry 97 99 100 Medical Decision Making Medical Records Medical records reviewed: Yes I reviewed the patient's medical records. Lab Data Lab results reviewed: Yes I reviewed the patient's lab results. Result diagrams: 04/15/20 20:55 04/15/20 20:55 Labs: Lab Results 04/15/20 04/15/20 04/15/20 Range/Units 20:55 20:55 20:55 WBC 8.3 (4.5-11.0) X10^3/uL RBC 4.70 (4.0-5.2) X10^6/uL Hgb 11.5 L (12.0-16.0) g/dL Hct 35.3 L (36-46) % MCV 75.3 L (80-100) fL MCH 24.6 L (26-34) PG MCHC 32.7 (30-36) % RDW 13.5 (11.6-14.8) % Plt Count 250 (150-400) X10^3/uL Neut % (Auto) 67.2 (50-75) % Lymph % (Auto) 18.9 L (25-40) % [place] % (Auto) 6.6 (3-14) % Eos % (Auto) 6.0 H (2-4) % Baso % (Auto) 1.3 (0-2) % Neut # (Auto) 5500 (9935-5909) /uL Lymph # (Auto) 1600 (4282-9282) /uL [place] # (Auto) 500 (0-900) /uL Eos # (Auto) 500 H (0-450) /uL Baso # (Auto) 100 (0-100) /uL Sodium 128 L (137-145) mmol/L Potassium 4.1 (3.4-5.1) mmol/L Chloride 96 L (98-107) mmol/L Carbon Dioxide 27 (22-32) mmol/L BUN 14 (7-17) mg/dL Creatinine 0.68 (0.52-1.04) mg/dL Estimated GFR > 60.0 (>60) mL/min BUN/Creatinine Ratio 20.6 (6-22) Glucose 102 H (70-100) mg/dL Lactate 1.0 (0.7-2.1) mmol/L Calcium 9.1 (8.4-10.2) mg/dL Total Bilirubin 0.2 (0.2-1.3) mg/dL AST 26 (14-36) IU/L ALT 18 (<35) IU/L Alkaline Phosphatase 72 (38-126) U/L Total Creatine Kinase (30-135) U/L CK-MB (CK-2) CK-MB (CK-2) Rel Index Troponin I (0.01-0.034) ng/mL Total Protein 7.5 (6.3-8.2) g/dL Albumin 4.0 (3.5-5.0) g/dL Globulin 3.5 (1.7-4.1) g/dL Albumin/Globulin Ratio 1.1 (1.0-2.8) SARS-CoV-2 (PCR) (Negative) 04/15/20 04/15/20 Range/Units 20:55 21:10 WBC (4.5-11.0) X10^3/uL RBC (4.0-5.2) X10^6/uL Hgb (12.0-16.0) g/dL Hct (36-46) % MCV (80-100) fL MCH (26-34) PG MCHC (30-36) % RDW (11.6-14.8) % Plt Count (150-400) X10^3/uL Neut % (Auto) (50-75) % Lymph % (Auto) (25-40) % [place] % (Auto) (3-14) % Eos % (Auto) (2-4) % Baso % (Auto) (0-2) % Neut # (Auto) (6921-2923) /uL Lymph # (Auto) (8380-1299) /uL [place] # (Auto) (0-900) /uL Eos # (Auto) (0-450) /uL Baso # (Auto) (0-100) /uL Sodium (137-145) mmol/L Potassium (3.4-5.1) mmol/L Chloride (98-107) mmol/L Carbon Dioxide (22-32) mmol/L BUN (7-17) mg/dL Creatinine (0.52-1.04) mg/dL Estimated GFR (>60) mL/min BUN/Creatinine Ratio (6-22) Glucose (70-100) mg/dL Lactate (0.7-2.1) mmol/L Calcium (8.4-10.2) mg/dL Total Bilirubin (0.2-1.3) mg/dL AST (14-36) IU/L ALT (<35) IU/L Alkaline Phosphatase (38-126) U/L Total Creatine Kinase 71 (30-135) U/L CK-MB (CK-2) TNP CK-MB (CK-2) Rel Index TNP Troponin I < 0.012 (0.01-0.034) ng/mL Total Protein (6.3-8.2) g/dL Albumin (3.5-5.0) g/dL Globulin (1.7-4.1) g/dL Albumin/Globulin Ratio (1.0-2.8) SARS-CoV-2 (PCR) Negative (Negative) Imaging Data CT scan - chest: Radiologist's Impression: No pulmonary embolism Thick walled cavity in the left upper lobe measuring up to 5.7 cm likely indicates the patient has known cancer. A cavitating pneumonia is considered less likely. There is pleural thickening which may be secondary to lymphangitic carcinomatosis. Associated left upper lobe ground-glass the patient he may indicate spread of the cancer or postobstructive pneumonia. Correlation with prior studies would be helpful to determine stability. CT scan - abdomen/pelvis: Radiologist's Impression: Suspect enteritis Trace ascites of uncertain etiology Indeterminate 1.7 cm low attenuating lesion in the liver is concerning for metastatic disease. Evaluation with nonemergent PET-CT is suggested ECG Data Attestation: I personally reviewed and interpreted this ECG as follows: Prior ECG tracings: not available for review Interpretation: Sinus rhythm Ventricular rate is 72 Left bundle-branch block MDM Narrative Medical decision making narrative: Patient is not hypoxic, not tachypneic, not in respiratory distress, has clear lung exam. Given her history of cancer and her presentation of shortness of breath or was concerned about pulmonary embolism. Had a long discussion with her and her regarding the CT scans that she has scheduled for the beginning of next week. Patient's was able to provide a picture of the orders from her oncologist which include a CT scan with contrast of the chest abdomen pelvis. After discussion with the zaynab clark the decision was made to proceed with a PE study for further evaluation. I feel that given the patient was here in the emergency department and we were doing a CT scan of her chest that completing the CT scan with contrast of the abdomen and pelvis to complete the needed/requested CT scan by her oncologist would say the patient time. The CT scan of the chest abdomen pelvis did not show pulmonary embolism however there was a fairly large left-sided cavitary lesion which when I discussed this with the patient she stated that ?they have been following a cyst ?in her lungs. Review of scanned prior CT results from the end of last year make no mention of a cavitary lesion in her left lung. I did inform her of this and at that time she then questioned whether not the cyst was in another location.. I did inform her that this was a concerning finding. I feel given her presentation today that pneumonia is less likely. I also discussed with her the findings on the CT scan of the abdomen pelvis to include the liver nodule. The patient states she thinks that she has been told that she had a spot in her liver in the past. We also had a discussion regarding the fact that lisinopril could also be contributing to her cough. She does have a history of high blood pressure. She is on metoprolol. She has been on lisinopril for almost a year if not slightly longer. She does take her blood pressure at home. Informed her that it would be okay for her to stop the lisinopril and to continue to take her blood pressures at home. She can contact her primary doctor about potentially starting a new blood pressure medication or restarting back on the lisinopril if her cough does not improve. I do feel that her cough is most likely related to the findings on the CT scan today. The CT scan images were ?pushed? to the [facility] so that they will be able to evaluate the results. Patient was informed of this. She was also given a CD with the pictures on it. She was instructed to contact her oncologist tomorrow to tell them that she had the CT scans performed today. She is given strict return precautions and follow-up instructions. She expressed understandi ng and agreement. Discharge Plan Departure Patient Disposition: Home Clinical Impression: Cancer of fallopian tube, Cough Instructions: Cough (Alternative Therapy) Activity Restrictions/Additional Instructions: I recommend that tomorrow you contact your providers down at the [facility] to let them know that you had the CT scan of your chest abdomen and pelvis performed here in the emergency department. We did transmit the CT scan pictures to the [facility]. They will have to ?pull? the pictures into their system from their end. A prescription for Tessalon was transmitted to [facility] in [place]. Use this as needed for cough. If you take your blood pressure at home it would not be unreasonable to stop the lisinopril as this medication has been known to cause coughing. Return to the emergency department for any new or worsening symptoms Prescriptions: New benzonatate [Tessalon Perles] 100 mg capsule 100 mg PO TID PRN (Reason: cough) Qty: 30 RF: 0 No Action aspirin [Adult Low Dose Aspirin] 81 mg tablet,delayed release (DR/EC) 81 mg PO DAILY RF: 0 ondansetron HCl [Zofran] 4 mg tablet 4 mg PO BID-TID PRN (Reason: Nausea) RF: 0 docusate sodium 50 mg capsule 50 mg PO PRN PRN (Reason: Constipation) RF: 0 lisinopril 20 mg tablet See Rx Instructions .ROUTE .COMPLEX Qty: 180 RF: 2 metoprolol succinate 50 mg tablet extended release 24 hr See Rx Instructions .ROUTE .COMPLEX Qty: 180 RF: 2 lisinopril 5 mg tablet 5 mg PO BID Qty: 180 RF: 2 omeprazole 40 mg Capsule,Delayed Release(Dr/Ec) 40 mg PO DAILY RF: 0 lidocaine-prilocaine 2.5-2.5 % Cream 1 ea topical DAILY Qty: 30 RF: 1 Referrals: Zack Mello DO [Primary Care Provider] -
--- NOTE | 2020-04-15 22:16 | DI.CT.S_ITS ---
PROCEDURE: CT ANGIO CHEST PE PROTOCOL INDICATIONS: Chest pain, shortness of breath, tachycardia TECHNIQUE: After the administration of intravenous contrast, 2 mm thick sections acquired from the pulmonary apices to the posterior costophrenic angles. 3-dimensional maximum intensity projection (MIP) coronal and sagittal reformats were then acquired through the thorax. For radiation dose reduction, the following was used: automated exposure control, adjustment of mA and/or kV according to patient size. COMPARISON: None. FINDINGS: Image quality: Excellent. Pulmonary arteries: Pulmonary arteries are normal in size, and demonstrate no intraluminal filling defects to suggest central pulmonary embolism. Lungs and pleura: Thick-walled cavitary mass in the apex of the left lung is noted which measures 5.7 centimeters in maximum diameter. Lesion likely related to patient's known lung carcinoma. Consolidation and adjacent to the left a pickle mass could represent postobstructive atelectasis or pneumonia versus post radiation change.. No pleural effusions or pneumothorax. Left pleural thickening is noted which could represent reactive change versus pleural carcinomatosis. Bilateral calcified pleural plaques noted. Central and peripheral airways are patent. Mediastinum: Heart size is normal, without pericardial effusion. No mediastinal or hilar adenopathy. Thoracic aorta is normal in caliber and enhancement. Esophagus is normal in caliber, without hiatal hernia. Bones and chest wall: Right chest wall Port-A-Cath. No suspicious bony lesions. Ribs and thoracic spine appear intact throughout. Thyroid gland is normal. No axillary or supraclavicular adenopathy. Abdomen: Small hiatal hernia. Hypoattenuating lesions noted in the liver which may represent cysts, however lesions cannot be definitively characterized by study optimized for visualization of pulmonary emboli. Visualized upper abdominal solid organs otherwise appear normal in the early arterial phase of enhancement. IMPRESSION: 1. No pulmonary embolus. 2. Thick-walled cavitary mass in the left lung apex likely reflective of patient's known lung carcinoma. 3. Patchy consolidation and ground-glass opacities adjacent to the left apically mass may represent postobstructive atelectasis, pneumonia or post radiation change. 4. Bilateral calcified pleural plaques. Asbestos-related disease cannot be excluded. Dictated by: Roberta Birmingham MD, PhD on 04/16/2020 at 8:09 Approved by: Roberta Birmingham MD, PhD on 04/16/2020 at 8:21
--- NOTE | 2020-04-15 22:16 | DI.CT.S_ITS ---
PROCEDURE: CT ABDOMEN PELVIS W CON INDICATIONS: Left-sided abdominal pain TECHNIQUE: After the administration of intravenous contrast, 5 mm thick sections acquired from the diaphragm to the symphysis. 5 mm coronal and sagittal reformats were acquired. For radiation dose reduction, the following was used: automated exposure control, adjustment of mA and/or kV according to patient size. COMPARISON: None. FINDINGS: Image quality: Excellent. ABDOMEN: Lung bases: There is mild linear atelectasis or scarring in the lung bases. Heart size is normal. Solid organs: There is an oval density lesion within the right hepatic lobe measuring up to 1.7 cm with indeterminate attenuation values. There are few additional smaller low-density lesions also demonstrated in the right and left lobes which are also nonspecific. The gallbladder appears within normal limits without calcified gallstones. Biliary system is non-dilated. Pancreas enhances normally. No peripancreatic fat stranding or fluid collections. No pancreatic duct dilatation. The spleen is normal in size. No adrenal nodules. Kidneys demonstrate no hydronephrosis. There is a nonobstructing stone within the left kidney measuring up to 0.5 cm. Peritoneum and bowel: Bowel loops demonstrate normal caliber. There are a few short segments of slight small bowel wall thickening. No pericecal inflammatory changes to suggest appendicitis. Surgical sutures are demonstrated in the sigmoid colon. No free air. There is a small amount of free fluid in the pelvis. Nodes and vessels: No retroperitoneal or mesenteric adenopathy by size criteria. Aorta and inferior vena cava are normal in size. Miscellaneous: No ventral hernias. PELVIS: Genitourinary: Bladder wall thickness is normal. The uterus is surgically absent. Miscellaneous: No inguinal hernias or adenopathy. Bones: No suspicious bony lesions. No vertebral body compression fractures. IMPRESSION: 1. Minimal wall thickening of a few small bowel loops is nonspecific and may reflect a mild enteritis. 2. Multiple small hypoattenuating lesions in the liver are incompletely characterized. Further evaluation may be obtained with a liver protocol MRI or CT if clinically indicated. 3. Left nephrolithiasis without evidence of obstructive uropathy. 4. Small amount of nonspecific free fluid in the pelvis. Dictated by: Lamin Elizabeth M.D. on 04/16/2020 at 9:02 Approved by: Lamin Elizabeth M.D. on 04/16/2020 at 9:21
[2020-04-15] MEDS: SODIUM CHLORIDE 0.9% 1,000 ML 500 ML IV (22:30)
[2020-04-16 00:14] VITALS: BP 172/79; PULSE 71; RESP 18; O2SAT 100
--- NOTE | 2020-04-16 09:09 | PC.NURSE ---
PATIENT CALLED STATING SHE WAS IN ER YESTERDAY FOR SOB AND SCANS SHOWED POSSIBLE NEW MASSES. PATIENT WILL SEE HER ONCOLOGIST ON 04/23. SHE WISHES DR MITCHELL TO BE MADE AWARE WHICH IS BEING DONE BY THIS NURSE PER FAX TO [facility] TODAY.
== END 2020-04-16 00:14 | disposition home or self-care (01) ==
PROVIDERS: Emergency Provider Emergency Medicine; Family Provider Family Medicine; PCP Family Medicine
DX: C57.00 Malignant neoplasm of unspecified fallopian tube (principal); R06.02 Shortness of breath; R05 Cough; I10 Essential (primary) hypertension; Z20.822 Contact with and (suspected) exposure to COVID-19
CPT/HCPCS: 36415; 71275; 74177; 80053; 82550; 83605; 84484; 85025; 87635; 93010; 94150; 96360; 96361; 99284; C9803; J1642; Q9967

== ENCOUNTER → 2020-05-14 09:59 | Outpatient (CLI) | payer OTHER, SELFPAY ==
--- NOTE | 2020-05-14 10:01 | DI.CT.S_ITS ---
PROCEDURE: CT CHEST WO CON INDICATIONS: Pneumonia, unspecified organism TECHNIQUE: Noncontrast 5 mm thick sections acquired from the pulmonary apices to the posterior costophrenic angles. 1 mm lung window, 5 mm thick coronal and sagittal and 7 mm axial MIP reformats were then acquired. For radiation dose reduction, the following was used: automated exposure control, adjustment of mA and/or kV according to patient size. COMPARISON: [facility], CT, CT ABDOMEN PELVIS W CON, 04/15/2020, 22:16. [facility], CT, CT ANGIO CHEST PE PROTOCOL, 04/15/2020, 22:16. FINDINGS: Image quality: Excellent. Lungs and pleura: There is a thick-walled cavitary mass in the left upper lobe posteriorly measuring 3.5 x 4.5 cm. It appears minimally changed from 04/15/2020. There are nodular infiltrates in the left upper lobe and bronchiectasis. There is pleural thickening and pleural plaques bilaterally. Subpleural scars and atelectasis in right middle lobe, lingula and left lower lobe. No acute air space opacities. No pleural effusions or pneumothorax. Central and peripheral airways are patent and normal in caliber. Mediastinum: Heart size is normal. No pericardial effusion. Borderline sized mediastinal lymph nodes measuring up to 8 mm in short axis.. Thoracic aorta and central pulmonary arteries are normal in size. Esophagus is normal in caliber. No hiatal hernia. Bones and chest wall: There is a Port-A-Cath in the right anterior chest with the tip in the atrial caval junction. No suspicious bony lesions. No vertebral body compression fractures. No axillary or supraclavicular adenopathy by size criteria. Thyroid gland is unremarkable . Abdomen: A 1.7 cm low-density nodule is seen in the posterior segment of the right hepatic lobe, compatible with a cyst. There is a 4 mm calcification in the left kidney. IMPRESSION: 1. A 3.5 x 4.5 cm thick-walled cavitary mass in the left upper lobe. Differential diagnosis include infection (such as a mycetoma), inflammatory cavity or neoplasm. 2. There are multiple nodules in the left upper lobe and left upper lobe bronchiectasis. 3. Bilateral pleural thickening and calcifications. Recommend clinical correlation for asbestos exposure. Dictated by: Augusto Katz M.D. on 05/14/2020 at 14:19 Approved by: Augusto Katz M.D. on 05/14/2020 at 17:56
== END ==
PROVIDERS: Family Provider Family Medicine; PCP Family Medicine; Referring Provider Internal Medicine Critical Care Medicine; Visit Provider Internal Medicine Critical Care Medicine
DX: J18.9 Pneumonia, unspecified organism (principal); R91.8 Other nonspecific abnormal finding of lung field; J47.9 Bronchiectasis, uncomplicated
CPT/HCPCS: 71250

== ENCOUNTER 2020-09-12 19:07 | Emergency (ER) | payer OTHER, SELFPAY ==
[2020-09-12] VITALS (7 sets, daily range): BP systolic 190–217; BP diastolic 79–100; PULSE 51–58; RESP 13–16; TEMP 36.8–36.9; O2SAT 98–99; BMI 26.2
--- NOTE | 2020-09-12 19:57 | ED_ITS ---
HPI - General Adult General Chief complaint: Hypertension Stated complaint: blood pressure issues Time Seen by Provider: 09/12/20 19:21 Source: patient Mode of arrival: Ambulatory Limitations: no limitations History of Present Illness HPI narrative: Patient is a 60-year-old female who was instructed to come to the emergency department for evaluation of her blood pressure. She has a history of high blood pressure. She is on metoprolol and also lisinopril. She has been taking her medications as directed. She states that normally her blood pressure runs 130-150 systolic. Over the past week she has had medical appointments to evaluate a fungal infection in her lungs. She is scheduled for surgery within the next couple weeks. At her doctor's visit earlier this week she was told that her systolic blood pressure was above 200. She states that today she was generally not feeling very well and took her blood pressure and it was above 200. She contacted her primary doctor and was informed to come to the emergency department for evaluation. Related Data Home Medications Medication Instructions Recorded Confirmed aspirin 81 mg tablet,delayed 81 mg PO DAILY 11/15/17 09/05/20 release docusate sodium 50 mg capsule 50 mg PO PRN PRN 01/26/18 09/05/20 omeprazole 40 mg PO DAILY 02/14/19 09/05/20 posaconazole 300 mg PO DAILY 09/05/20 09/05/20 Previous Rx's Medication Instructions Recorded lidocaine-prilocaine 1 ea TOPICAL DAILY #30 g 10/26/19 metoprolol succinate 50 mg See Rx Instructions .ROUTE 11/06/19 tablet,extended release 24 hr .COMPLEX #180 tab Allergies Allergy/AdvReac Type Severity Reaction Status Date / Time paclitaxel Allergy Severe chemical Verified 04/28/19 16:39 hepatitis sulfite Allergy Severe Anaphylaxis Verified 04/28/19 16:39 sulfamethoxazole Allergy rash and Verified 04/28/19 16:39 [From Bactrim] hives trimethoprim [From Bactrim] Allergy rash and Verified 04/28/19 16:39 hives Review of Systems Constitutional Constitutional: Reports fatigue and Reports malaise Cardiovascular Cardiovascular: Reports system reviewed and no additional complaints, except as documented Respiratory Respiratory: Reports system reviewed and no additional complaints, except as documented Gastrointestinal Gastrointestinal: Reports system reviewed and no additional complaints, except as documented Integumentary/Breasts Skin/Breast: Denies rash Neurologic Neurologic: Reports system reviewed and no additional complaints, except as documented Endocrine Endocrine: Reports fatigue Hematologic/Lymphatic On Anticoagulants: No Allergic/Immunologic Allergic/Immunologic: Reports system reviewed and no additional complaints, except as documented Patient History Medical History Cancer of fallopian tube HTN (hypertension) Surgical History (Updated 05/09/19 @ 14:39 by Cindi Chu MD) H/O pelvic surgery Social History Smoking Status: Never smoker alcohol intake: current (Rare) Smoking Status: Never smoker alcohol intake frequency: holidays/special occasions only Substance Use Type: does not use Exam Initial Vital Signs Initial Vital Signs: Vital Signs Temperature 98.5 F 09/12/20 19:15 Pulse Rate 57 L 09/12/20 19:15 Respiratory Rate 15 09/12/20 19:15 Blood Pressure 217/100 H 09/12/20 19:15 Pulse Oximetry 98 09/12/20 19:15 Const General: cooperative and comfortable Limitations: mental status not altered HENMT Head: normal to inspection and normocephalic Resp Effort & Inspection: normal respiratory effort Auscultation: clear to auscultation bilaterally Cardio Rate: regular rate Rhythm: regular rhythm GI Inspection: non-distended Palpation: soft and No tender Skin Lesions: no lesions Rashes: no rashes Neuro General: patient alert and patient awake Cognition: normal cognition Speech: speech normal Extrem General: normal to inspection and capillary refill normal Psych Appearance: grossly normal and well kempt Course Orders Ordered: ED Orders 09/12/20 19:23 EKG-12 Lead Stat Vital Signs Vital signs: Vital Signs - 8 hr 09/12/20 19:15 09/12/20 19:24 09/12/20 19:25 Temperature 98.5 F Pulse Rate 57 L 58 L Respiratory Rate 15 16 Blood Pressure 217/100 H 217/100 H Pulse Oximetry 98 98 98 09/12/20 19:30 09/12/20 20:00 09/12/20 20:01 Temperature Pulse Rate 55 L 51 L 52 L Respiratory Rate 15 13 13 Blood Pressure 209/88 H 200/85 H Pulse Oximetry 98 98 98 09/12/20 21:00 Temperature 98.2 F Pulse Rate 56 L Respiratory Rate 16 Blood Pressure 190/79 H Pulse Oximetry 99 Medical Decision Making ECG Data Attestation: I personally reviewed and interpreted this ECG as follows: Prior ECG tracings: not available for review Interpretation: Sinus rhythm Ventricular rate is 61 Normal axis Normal QRS Normal QTC Left bundle-branch block looks [address] T wave changes MDM Narrative Medical decision making narrative: Patient is hyper intensive however has no indication of end-organ dysfunction because of this. She is on blood pressure medications. States that her blood pressure has normally been 130-150 systolic and has only been for the past week that her systolic blood pressures been greater than 200. I feel no further workup is needed here in the emergency dep artment. Have her contact her primary doctor to discuss further changes standing medications if needed. She was given return precautions. She expressed understanding and agreement. Discharge Plan Departure Patient Disposition: Home Clinical Impression: HTN (hypertension), Acute maxillary sinusitis Instructions: DI for High Blood Pressure Activity Restrictions/Additional Instructions: Your blood pressure is elevated here in the emergency department however this is a issue that needs to be addressed by small adjustments of her medications over longer periods of time. I recommend that you contact your primary provider for a follow-up and continue to take all her medications as directed. Return to the emergency department for any new symptoms. Prescriptions: No Action aspirin [Adult Low Dose Aspirin] 81 mg tablet,delayed release (DR/EC) 81 mg PO DAILY RF: 0 docusate sodium 50 mg capsule 50 mg PO PRN PRN (Reason: Constipation) RF: 0 metoprolol succinate 50 mg tablet extended release 24 hr See Rx Instructions .ROUTE .COMPLEX Qty: 180 RF: 2 omeprazole 40 mg Capsule,Delayed Release(Dr/Ec) 40 mg PO DAILY RF: 0 lidocaine-prilocaine 2.5-2.5 % Cream 1 ea topical DAILY Qty: 30 RF: 1 posaconazole 100 mg Tablet,Delayed Release (Dr/Ec) 300 mg PO DAILY RF: 0 Referrals: Zack Mello, [Primary Care Provider] -
== END 2020-09-12 21:02 | disposition home or self-care (01) ==
PROVIDERS: Emergency Provider Emergency Medicine; Family Provider Family Medicine; PCP Family Medicine; Referring Provider Family Medicine
DX: I10 Essential (primary) hypertension (principal); J01.00 Acute maxillary sinusitis, unspecified
CPT/HCPCS: 93005; 99281; 99283

== ENCOUNTER → 2020-10-18 11:57 | Outpatient (CLI) | payer OTHER, SELFPAY ==
[2020-10-18 13:00] LABS: Add Manual Diff / Slide Review NO; Basophils Absolute Auto 100 /uL (0-100); Basophils Percent Auto 1.2 % (0-2); Eosinophils Absolute Auto 300 /uL (0-450); Eosinophils Percent Auto 4.6 % (2-4); Hematocrit 29.6 % (36-46); Hemoglobin 9.4 g/dL (12.0-16.0); Lymphocytes Absolute Auto 700 /uL (1100-4500); Lymphocytes Percent Auto 10.5 % (25-40); Mean Corpuscular HGB Conc 31.6 % (30-36); Mean Corpuscular Hemoglobin 22.7 PG (26-34); Mean Corpuscular Volume 72.1 fL (80-100); Monocytes Absolute Auto 700 /uL (0-900); Neutrophils Absolute Auto 4800 /uL (1500-7000); Neutrophils Percent Auto 73.7 % (50-75); Platelet Count 419 X10^3/uL (150-400); Red Blood Cell Count 4.11 X10^6/uL (4.0-5.2); Red Cell Distribution Width 15.2 % (11.6-14.8); White Blood Cell Count 6.5 X10^3/uL (4.5-11.0)
[2020-10-18 13:14] LABS: HEMOLYSIS < 15 (0-50); Iron 19 ug/dL (37-170)
[2020-10-18 13:15] LABS: Reticulocyte Count, Percent 1.8 % (1.06-2.63)
[2020-10-18 13:24] LABS: Percent Iron Saturation 7 % (15-50); Total Iron Binding Capacity 287 ug/dL (265-497); Transferrin 216 mg/dL (206-381)
== END ==
PROVIDERS: Family Provider Family Medicine; PCP Family Medicine
DX: D64.9 Anemia, unspecified (principal)
CPT/HCPCS: 36415; 83540; 83550; 85025; 85045

== ENCOUNTER → 2021-02-06 11:15 | Outpatient (CLI) | payer OTHER, SELFPAY ==
--- NOTE | 2021-02-06 11:15 | DI.CT.S_ITS ---
PROCEDURE: CT CHEST ABD PEL W CON INDICATIONS: fallopian tumor TECHNIQUE: After the administration of oral and intravenous contrast, axial sections acquired from the supraclavicular neck to the pubic symphysis. Coronal and sagittal reformats were performed. For radiation dose reduction, the following was used: automated exposure control, adjustment of mA and/or kV according to patient size. COMPARISON: Prior studies dating back to April 15, 2020. FINDINGS: Image quality: Excellent. CHEST: Lower Neck: No enlarged lymph nodes. Thyroid: Homogeneous attenuation. Axillae: No enlarged lymph nodes. Chest Wall: Unremarkable. Lungs and Pleura: Minimal right apical pleural thickening/scarring. The right lung is well aerated without consolidation, pleural fluid, or pneumothorax. Postsurgical changes of the left upper and lower lobes with suture lines. Interval decreased size of the cavitary lesion in the left apex, now measuring 10 x 4.7 cm (series 5, image 52); previously measuring 13.1 x 5.5 cm (series 5, image 33). Residual small left lower lobe pleural fluid/thickening with calcified pleural plaques. Heart: Heart size is normal. No pericardial effusion. Thoracic Vessels: The aorta and pulmonary arteries demonstrate normal size. A right gabe catheter is seen with tip in SVC. Mediastinum and T[place]ani: No enlarged lymph nodes. Esophagus: No wall thickening. No hiatal hernia. ABDOMEN: Liver: Redemonstrated scattered hypoattenuating lesions throughout the right hepatic lobe, measuring up to 1.8 cm. Gallbladder: Contracted gallbladder. Biliary ducts: No intrahepatic biliary duct dilatation. Pancreas: Normal contour and enhancement. Spleen: Normal contour and enhancement. Adrenal Glands: Normal contour. Kidneys and Ureters: Symmetric enhancement without evidence of obstructive uropathy. A nonobstructive calculus is seen in the left upper pole. Stomach and Bowel: No evidence of intestinal obstruction. A suture line is seen in the rectosigmoid colon. Moderate stool burden in the transverse colon. Peritoneum: No abnormal intraperitoneal fluid. No free air. Ventral Wall: No hernia. Abdominal Nodes: No retroperitoneal or mesenteric adenopathy by size criteria. Vessels: Aorta and inferior vena cava are normal in size. PELVIS: Pelvic Organs: The uterus is surgically absent. Small amount of fluid in the pelvis, which is nonspecific. Bladder: Partially under distended but grossly unremarkable. Pelvic Nodes: No enlarged lymph nodes. Miscellaneous: No inguinal hernias are seen. Bones: No significant abnormality. IMPRESSION: 1. Interval decreased size of the left upper lobe cavitary lesion, as detailed above. 2. Residual small left lower lobe pleural fluid/thickening with calcified pleural plaques. 3. Stable hypoattenuating lesions in the right hepatic lobe, incompletely characterized. 4. Small volume but increased pelvic free fluid, of uncertain clinical significance. Dictated by: Donald Jones M.D. on 02/06/2021 at 12:55 Approved by: Donald Jones M.D. on 02/06/2021 at 13:18
== END ==
PROVIDERS: Family Provider Family Medicine; PCP Family Medicine; Referring Provider Internal Medicine Hematology & Oncology; Visit Provider Internal Medicine Hematology & Oncology
DX: C57.00 Malignant neoplasm of unspecified fallopian tube (principal); R91.8 Other nonspecific abnormal finding of lung field; J92.9 Pleural plaque without asbestos; K76.9 Liver disease, unspecified
CPT/HCPCS: 71260; 74177

== ENCOUNTER 2021-04-30 11:21 | Emergency (ER) | payer OTHER, SELFPAY ==
[2021-04-30] VITALS (15 sets, daily range): BP systolic 116–150; BP diastolic 57–84; PULSE 87–99; RESP 16–29; TEMP 36.9; O2SAT 94–98; BMI 24.7
--- NOTE | 2021-04-30 11:32 | DI.RAD.S_ITS ---
PROCEDURE: XR CHEST 1V INDICATIONS: sob TECHNIQUE: One view of the chest was acquired. COMPARISON: [facility], CT, CT CHEST ABD PEL W CON, 02/06/2021, 12:08. FINDINGS: Surgical changes and devices: Postsurgical changes are noted in left upper lung field. Right chest wall Port-A-Cath tip is in SVC. Lungs and pleura: Left a pickle scarring/atelectasis is seen with chronic appearing left lung volume loss. Ill-defined opacities in left upper lung tobin are seen concerning for upper lobe infiltrate/atelectasis. No pleural effusion. No gross pneumothorax. Mediastinum: Mediastinal contours appear normal. Heart size is normal. Bones and chest wall: No suspicious bony lesions. Overlying soft tissues appear unremarkable. IMPRESSION: Postsurgical changes in left upper lobe, underlying left upper low to mid lung field patchy infiltrates cannot be excluded. No pleural effusion or gross pneumothorax. Dictated by: Wade Painting M.D. on 04/30/2021 at 12:03 Approved by: Wade Painting M.D. on 04/30/2021 at 12:04
[2021-04-30 11:58] LABS: Add Manual Diff / Slide Review NO; Basophils Absolute Auto 0 /uL (0-100); Basophils Percent Auto 0.1 % (0-2); Eosinophils Absolute Auto 200 /uL (0-450); Eosinophils Percent Auto 1.9 % (2-4); Hematocrit 31.9 % (36-46); Hemoglobin 10.2 g/dL (12.0-16.0); Lymphocytes Absolute Auto 300 /uL (1100-4500); Lymphocytes Percent Auto 2.4 % (25-40); Mean Corpuscular HGB Conc 31.9 % (30-36); Mean Corpuscular Hemoglobin 20.1 PG (26-34); Monocytes Absolute Auto 600 /uL (0-900); Monocytes Percent Auto 5.1 % (3-14); Neutrophils Absolute Auto 11400 /uL (1500-7000); Neutrophils Percent Auto 90.5 % (50-75); Platelet Count 238 X10^3/uL (150-400); Red Blood Cell Count 5.07 X10^6/uL (4.0-5.2); Red Cell Distribution Width 19.7 % (11.6-14.8); White Blood Cell Count 12.6 X10^3/uL (4.5-11.0)
[2021-04-30 12:07] LABS: BUN Creatinine Ratio 17.2 (6-22); Blood Urea Nitrogen 10 mg/dL (7-17); Calcium 9.2 mg/dL (8.4-10.2); Carbon Dioxide 27 mmol/L (22-32); Chloride 99 mmol/L (98-107); Creatine Kinase 22 U/L (30-135); Estimated Glomerular Filt Rate > 60.0 mL/min (>60); Glucose 138 mg/dL (70-100); HEMOLYSIS 30 (0-50); Potassium 3.7 mmol/L (3.4-5.1); Sodium 133 mmol/L (137-145)
[2021-04-30 12:12] LABS: COVID19 -Nasal RAPID Negative (Negative)
--- NOTE | 2021-04-30 12:12 | ED.GENADULT ---
HPI - General Adult General Chief complaint: Shortness of Breath/Dyspnea Stated complaint: Body aches, vomiting, trouble breathing Time Seen by Provider: 04/30/21 11:24 Source: patient Mode of arrival: Ambulatory History of Present Illness HPI narrative: Patient is a 61-year-old female. 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 Was on antifungal medications until the end of last year but is not currently on them. Is currently undergoing chemotherapy. Has had a lung resection in the past. Is here for evaluation of a couple days of body aches and vomiting and problems breathing. No fevers. She is vaccinated against the flu, pneumonia and COVID. She is being followed by infectious disease at [facility]. Her oncologist is also at [facility]. She contacted her infectious disease provider this morning because of the symptoms. There was concern about return of the aspergillosis. She was on her way to [facility] when she stated she could make it because she was vomiting so much. Patient is also having a headache. She has been taking all of her prescribed medicines as directed. Related Data Home Medications Medication Instructions Recorded Confirmed docusate sodium 50 mg capsule 50 mg PO PRN PRN 01/26/18 02/20/21 omeprazole 40 mg capsule,delayed 40 mg PO DAILY 02/14/19 02/20/21 release posaconazole 100 mg tablet,delayed 300 mg PO DAILY 09/05/20 02/20/21 release magnesium 250 mg tablet 250 mg PO DAILY 01/30/21 02/20/21 Previous Rx's Medication Instructions Recorded lidocaine-prilocaine 2.5 %-2.5 % 1 ea TOPICAL DAILY #30 g 10/26/19 topical cream metoprolol succinate 50 mg See Rx Instructions .ROUTE 11/14/20 tablet,extended release 24 hr .COMPLEX #180 tab amlodipine 2.5 mg tablet 2.5 mg PO DAILY #90 tab 04/16/21 cefdinir 300 mg capsule 300 mg PO BID 7 Days #14 cap 04/30/21 doxycycline hyclate 100 mg tablet 100 mg PO BID 7 Days #14 tab 04/30/21 Allergies Allergy/AdvReac Type Severity Reaction Status Date / Time paclitaxel Allergy Severe chemical Verified 04/30/21 11:30 hepatitis sulfite Allergy Severe Anaphylaxis Verified 04/30/21 11:30 sulfamethoxazole Allergy rash and Verified 04/30/21 11:30 [From Bactrim] hives trimethoprim [From Bactrim] Allergy rash and Verified 04/30/21 11:30 hives Review of Systems Constitutional Constitutional: Reports as per HPI and Reports system reviewed and no additional complaints, except as documented ENT Ears, Nose, Mouth, and Throat: Reports system reviewed and no additional complaints, except as documented Cardiovascular Cardiovascular: Reports as per HPI and Reports system reviewed and no additional complaints, except as documented Respiratory Respiratory: Reports as per HPI and Reports system reviewed and no additional complaints, except as documented Gastrointestinal Gastrointestinal: Reports as per HPI and Reports system reviewed and no additional complaints, except as documented Genitourinary Genitourinary: Reports system reviewed and no additional complaints, except as documented and Reports as per HPI Musculoskeletal Musculoskeletal: Reports system reviewed and no additional complaints, except as documented and Reports as per HPI Integumentary/Breasts Skin/Breast: Reports system reviewed and no additional complaints, except as documented and Reports as per HPI Neurologic Neurologic: Reports system reviewed and no additional complaints, except as documented Psychiatric Psychiatric: Reports system reviewed and no additional complaints, except as documented Hematologic/Lymphatic On Anticoagulants: No Allergic/Immunologic Allergic/Immunologic: Reports system reviewed and no additional complaints, except as documented and Reports as per HPI Patient History Medical History Acute maxillary sinusitis Cancer of fallopian tube HTN (hypertension) Iron deficiency anemia Pulmonary aspergillosis Surgical History (Updated 05/09/19 @ 14:39 by Cindi Chu MD) H/O pelvic surgery Social History Smoking Status: Never smoker alcohol intake: current (Rare) Smoking Status: Never smoker alcohol intake frequency: holidays/special occasions only Substance Use Type: does not use Exam Initial Vital Signs Initial Vital Signs: Vital Signs Temperature 98.5 F 04/30/21 11:25 Pulse Rate 99 H 04/30/21 11:25 Respiratory Rate 16 04/30/21 11:25 Blood Pressure 150/70 H 04/30/21 11:25 Pulse Oximetry 98 04/30/21 11:25 Const General: cooperative, comfortable, well developed, well groomed, No in distress and No ill appearing HENMT Head: normal to inspection and normocephalic Resp Effort & Inspection: normal respiratory effort, not labored, no respiratory distress, no retractions, tachypneic and no use of accessory muscles Auscultation: clear to auscultation bilaterally Cardio Rate: regular rate Rhythm: regular rhythm GI Inspection: normal to inspection Skin General: no rashes or lesions noted Neuro General: patient alert, patient awake, patient oriented x3, tone normal and moves all extremities Extrem General: normal to inspection and capillary refill normal Psych Appearance: grossly normal and well kempt Course Orders Ordered: Discontinued Medications Acetaminophen (Acetaminophen 325 Mg Tablet) 650 mg PO NOW ONE Stop: 04/30/21 16:59 Last Admin: 04/30/21 17:05 Dose: 650 mg Documented by: JUNG Doxycycline Hyclate (Doxycycline Hyclate 100 Mg Tablet) 100 mg PO NOW ONE Stop: 04/30/21 17:02 Last Admin: 04/30/21 17:05 Dose: 100 mg Documented by: JUNG Heparin Sodium (Porcine) (Heparin 500 Unit/5 Ml Port Flush) 500 unit IV PRN PRN PRN Reason: Flush Last Admin: 04/30/21 17:40 Dose: 500 unit Documented by: JUNG Sodium Chloride (Normal Saline 0.9%) 1,000 mls @ 1,000 mls/hr IV BOLUS ONE Stop: 04/30/21 13:23 Last Infusion: 04/30/21 13:57 Dose: 0 mls/hr Documented by: Admin: 04/30/21 12:42 Dose: 1,000 mls/hr Documented by: JUNG Ceftriaxone Sodium 2,000 mg/ (Sodium Chloride) 100 mls @ 200 mls/hr IV NOW ONE Stop: 04/30/21 15:41 Last Infusion: 04/30/21 16:49 Dose: 0 mls/hr Documented by: Admin: 04/30/21 16:00 Dose: 200 mls/hr Documented by: JUNG Ondansetron HCl (Ondansetron 4 Mg/2 Ml Inj) 4 mg IV NOW ONE Stop: 04/30/21 12:25 Last Admin: 04/30/21 12:42 Dose: 4 mg Documented by: JUNG Vital Signs Vital signs: Vital Signs - 8 hr 04/30/21 11:25 Temperature 98.5 F Pulse Rate 99 H Respiratory Rate 16 Blood Pressure 150/70 H Pulse Oximetry 98 Medical Decision Making Medical Records Medical records reviewed: Yes I reviewed the patient's medical records. Lab Data Lab results reviewed: Yes I reviewed the patient's lab results. Result diagrams: 04/30/21 11:43 04/30/21 11:43 Labs: Lab Results 04/30/21 04/30/21 04/30/21 Range/Units 11:30 11:43 11:43 WBC 12.6 H (4.5-11.0) X10^3/uL RBC 5.07 (4.0-5.2) X10^6/uL Hgb 10.2 L (12.0-16.0) g/dL Hct 31.9 L (36-46) % MCV 63.0 L (80-100) fL MCH 20.1 L (26-34) PG MCHC 31.9 (30-36) % RDW 19.7 H (11.6-14.8) % Plt Count 238 (150-400) X10^3/uL Neut % (Auto) 90.5 H (50-75) % Lymph % (Auto) 2.4 L (25-40) % [place] % (Auto) 5.1 (3-14) % Eos % (Auto) 1.9 L (2-4) % Baso % (Auto) 0.1 (0-2) % Neut # (Auto) 08724 H (6031-0924) /uL Lymph # (Auto) 300 L (9317-3517) /uL [place] # (Auto) 600 (0-900) /uL Eos # (Auto) 200 (0-450) /uL Baso # (Auto) 0 (0-100) /uL RBC Morphology See below Anisocytosis 2+ H Microcytosis 3+ H Sodium 133 L (137-145) mmol/L Potassium 3.7 (3.4-5.1) mmol/L Chloride 99 (98-107) mmol/L Carbon Dioxide 27 (22-32) mmol/L BUN 10 (7-17) mg/dL Creatinine 0.58 (0.52-1.04) mg/dL Estimated GFR > 60.0 (>60) mL/min BUN/Creatinine Ratio 17.2 (6-22) Glucose 138 H (70-100) mg/dL Lactate (0.7-2.1) mmol/L Calcium 9.2 (8.4-10.2) mg/dL Total Bilirubin (0.2-1.3) mg/dL Conjugated Bilirubin (0.0-0.3) md/dL Unconjugated Bilirubin (0.0-1.1) mg/dL AST (14-36) IU/L ALT (<35) IU/L Alkaline Phosphatase (38-126) U/L Total Creatine Kinase 22 L (30-135) U/L CK-MB (CK-2) TNP CK-MB (CK-2) Rel Index TNP Troponin I < 0.012 (0.01-0.034) ng/mL Total Protein (6.3-8.2) g/dL Albumin (3.5-5.0) g/dL Globulin (1.7-4.1) g/dL Albumin/Globulin Ratio (1.0-2.8) Procalcitonin (<0.5) ng/mL Urine Color Urine Appearance Urine pH (4.5-8.0) Ur Specific [place] (1.000-1.035) Urine Protein (Negative) Urine Glucose (UA) (Negative) g/dL Urine Ketones (NEGATIVE) Urine Occult Blood (Negative) Urine Nitrate (Negative) Urine Bilirubin (NEGATIVE) Urine Urobilinogen (0.2) E.U./dL Ur Leukocyte Esterase (NEGATIVE) Urine RBC (0-5/HPF) Urine WBC (0-5/HPF) Urine Bacteria (None) Ur Culture Indicated? Chlamy pneumoniae PCR Not detected (Not Detect) Adenovirus (PCR) Not detected (Not Detect) B. pertussis DNA (PCR) Not detected (Not Detecte) B.parapertussis DNA PCR Not detected (Not Detecte) Coronavirus OC43 (PCR) Not detected (Not Detect) Coronavirus HKU1 (PCR) Not detected (Not Detect) Coronavirus 229E (PCR) Not detected (Not Detect) SARS-CoV-2 (PCR) Not detected (Not Detecte) Coronavirus NL63 (PCR) Not detected (Not Detect) Human Metapneumovir PCR Not detected (Not Detect) Influenza Type A (PCR) Not detected (Not Detect) Influenza Type B (PCR) Not detected (Not Detect) M. pneumoniae (PCR) Not detected (Not Detect) Parainfluenza 1 (PCR) Not detected (Not Detect) Parainfluenza 2 (PCR) Not detected (Not Detect) Parainfluenza 3 (PCR) Not detected (Not Detect) Parainfluenza 4 (PCR) Not detected (Not Detect) RSV (PCR) Not detected (Not Detect) Entero/Rhino (PCR) Not detected (Not Detect) 04/30/21 04/30/21 04/30/21 Range/Units 11:43 11:43 11:45 WBC (4.5-11.0) X10^3/uL RBC (4.0-5.2) X10^6/uL Hgb (12.0-16.0) g/dL Hct (36-46) % MCV (80-100) fL MCH (26-34) PG MCHC (30-36) % RDW (11.6-14.8) % Plt Count (150-400) X10^3/uL Neut % (Auto) (50-75) % Lymph % (Auto) (25-40) % [place] % (Auto) (3-14) % Eos % (Auto) (2-4) % Baso % (Auto) (0-2) % Neut # (Auto) (5554-0995) /uL Lymph # (Auto) (9430-6588) /uL [place] # (Auto) (0-900) /uL Eos # (Auto) (0-450) /uL Baso # (Auto) (0-100) /uL RBC Morphology Anisocytosis Microcytosis Sodium (137-145) mmol/L Potassium (3.4-5.1) mmol/L Chloride (98-107) mmol/L Carbon Dioxide (22-32) mmol/L BUN (7-17) mg/dL Creatinine (0.52-1.04) mg/dL Estimated GFR (>60) mL/min BUN/Creatinine Ratio (6-22) Glucose (70-100) mg/dL Lactate 1.5 (0.7-2.1) mmol/L Calcium (8.4-10.2) mg/dL Total Bilirubin 0.8 (0.2-1.3) mg/dL Conjugated Bilirubin 0.0 (0.0-0.3) md/dL Unconjugated Bilirubin 0.7 (0.0-1.1) mg/dL AST 26 (14-36) IU/L ALT 14 (<35) IU/L Alkaline Phosphatase 88 (38-126) U/L Total Creatine Kinase (30-135) U/L CK-MB (CK-2) CK-MB (CK-2) Rel Index Troponin I (0.01-0.034) ng/mL Total Protein 8.0 (6.3-8.2) g/dL Albumin 4.0 (3.5-5.0) g/dL Globulin 4.0 (1.7-4.1) g/dL Albumin/Globulin Ratio 1.0 (1.0-2.8) Procalcitonin (<0.5) ng/mL Urine Color Urine Appearance Urine pH (4.5-8.0) Ur Specific [place] (1.000-1.035) Urine Protein (Negative) Urine Glucose (UA) (Negative) g/dL Urine Ketones (NEGATIVE) Urine Occult Blood (Negative) Urine Nitrate (Negative) Urine Bilirubin (NEGATIVE) Urine Urobilinogen (0.2) E.U./dL Ur Leukocyte Esterase (NEGATIVE) Urine RBC (0-5/HPF) Urine WBC (0-5/HPF) Urine Bacteria (None) Ur Culture Indicated? Chlamy pneumoniae PCR (Not Detect) Adenovirus (PCR) (Not Detect) B. pertussis DNA (PCR) (Not Detecte) B.parapertussis DNA PCR (Not Detecte) Coronavirus OC43 (PCR) (Not Detect) Coronavirus HKU1 (PCR) (Not Detect) Coronavirus 229E (PCR) (Not Detect) SARS-CoV-2 (PCR) Negative (Not Detecte) Coronavirus NL63 (PCR) (Not Detect) Human Metapneumovir PCR (Not Detect) Influenza Type A (PCR) (Not Detect) Influenza Type B (PCR) (Not Detect) M. pneumoniae (PCR) (Not Detect) Parainfluenza 1 (PCR) (Not Detect) Parainfluenza 2 (PCR) (Not Detect) Parainfluenza 3 (PCR) (Not Detect) Parainfluenza 4 (PCR) (Not Detect) RSV (PCR) (Not Detect) Entero/Rhino (PCR) (Not Detect) 04/30/21 04/30/21 Range/Units 12:17 15:00 WBC (4.5-11.0) X10^3/uL RBC (4.0-5.2) X10^6/uL Hgb (12.0-16.0) g/dL Hct (36-46) % MCV (80-100) fL MCH (26-34) PG MCHC (30-36) % RDW (11.6-14.8) % Plt Count (150-400) X10^3/uL Neut % (Auto) (50-75) % Lymph % (Auto) (25-40) % [place] % (Auto) (3-14) % Eos % (Auto) (2-4) % Baso % (Auto) (0-2) % Neut # (Auto) (4929-9570) /uL Lymph # (Auto) (5625-7828) /uL [place] # (Auto) (0-900) /uL Eos # (Auto) (0-450) /uL Baso # (Auto) (0-100) /uL RBC Morphology Anisocytosis Microcytosis Sodium (137-145) mmol/L Potassium (3.4-5.1) mmol/L Chloride (98-107) mmol/L Carbon Dioxide (22-32) mmol/L BUN (7-17) mg/dL Creatinine (0.52-1.04) mg/dL Estimated GFR (>60) mL/min BUN/Creatinine Ratio (6-22) Glucose (70-100) mg/dL Lactate (0.7-2.1) mmol/L Calcium (8.4-10.2) mg/dL Total Bilirubin (0.2-1.3) mg/dL Conjugated Bilirubin (0.0-0.3) md/dL Unconjugated Bilirubin (0.0-1.1) mg/dL AST (14-36) IU/L ALT (<35) IU/L Alkaline Phosphatase (38-126) U/L Total Creatine Kinase (30-135) U/L CK-MB (CK-2) CK-MB (CK-2) Rel Index Troponin I (0.01-0.034) ng/mL Total Protein (6.3-8.2) g/dL Albumin (3.5-5.0) g/dL Globulin (1.7-4.1) g/dL Albumin/Globulin Ratio (1.0-2.8) Procalcitonin 0.06 (<0.5) ng/mL Urine Color Yellow Urine Appearance Clear Urine pH 6.5 (4.5-8.0) Ur Specific [place] <=1.005 (1.000-1.035) Urine Protein 1+ H (Negative) Urine Glucose (UA) Negative (Negative) g/dL Urine Ketones Negative (NEGATIVE) Urine Occult Blood 1+ H (Negative) Urine Nitrate Negative (Negative) Urine Bilirubin Negative (NEGATIVE) Urine Urobilinogen 0.2 (0.2) E.U./dL Ur Leukocyte Esterase Negative (NEGATIVE) Urine RBC 0-1/hpf (0-5/HPF) Urine WBC None seen (0-5/HPF) Urine Bacteria None seen (None) Ur Culture Indicated? Cult not indicated Chlamy pneumoniae PCR (Not Detect) Adenovirus (PCR) (Not Detect) B. pertussis DNA (PCR) (Not Detecte) B.parapertussis DNA PCR (Not Detecte) Coronavirus OC43 (PCR) (Not Detect) Coronavirus HKU1 (PCR) (Not Detect) Coronavirus 229E (PCR) (Not Detect) SARS-CoV-2 (PCR) (Not Detecte) Coronavirus NL63 (PCR) (Not Detect) Human Metapneumovir PCR (Not Detect) Influenza Type A (PCR) (Not Detect) Influenza Type B (PCR) (Not Detect) M. pneumoniae (PCR) (Not Detect) Parainfluenza 1 (PCR) (Not Detect) Parainfluenza 2 (PCR) (Not Detect) Parainfluenza 3 (PCR) (Not Detect) Parainfluenza 4 (PCR) (Not Detect) RSV (PCR) (Not Detect) Entero/Rhino (PCR) (Not Detect) Imaging Data Chest x-ray: Radiologist's Impression: [address] [address] XRay Report Signed Patient: Maura Ramirez MR#: [id number] : 1960 Acct:[id number] Age/Sex: 61 / F Date of Service: 04/30/21 Loc: ED Accession Number: [id number] ?? Procedure: XR chest 1V Ordering Provider: Freedom Caballero D.O. PROCEDURE:? XR CHEST 1V ? INDICATIONS:? sob ? TECHNIQUE:? One view of the chest was acquired.? ? COMPARISON:? [facility], CT, CT CHEST ABD PEL W CON, 02/06/2021, 12:08. ? FINDINGS:? ? Surgical changes and devices:? Postsurgical changes are noted in left upper lung field.? Right chest wall Port-A-Cath tip is in SVC. ? Lungs and pleura:? Left a pickle scarring/atelectasis is seen with chronic appearing left lung volume loss.? Ill-defined opacities in left upper lung tobin are seen concerning for upper lobe infiltrate/atelectasis.? No pleural effusion.? No gross pneumothorax. ? Mediastinum:? Mediastinal contours appear normal.? Heart size is normal.? ? Bones and chest wall:? No suspicious bony lesions.? Overlying soft tissues appear unremarkable.? ? IMPRESSION:? Postsurgical changes in left upper lobe, underlying left upper low to mid lung field patchy infiltrates cannot be excluded.? No pleural effusion or gross pneumothorax. ? ? Dictated by: Wade Painting M.D. on 04/30/2021 at 12:03 ? ? Approved by: Wade Painting M.D. on 04/30/2021 at 12:04?? CT scan - chest: Radiologist's Impression: [place] [address] CT Scan Report Signed Patient: Maura Ramirez MR#: [id number] : 1960 Acct:[id number] Age/Sex: 61 / F Date of Service: 04/30/21 Loc: ED Accession Number: [id number] ?? Procedure: CT chest w con Ordering Provider: Freedom Caballero D.O. PROCEDURE:? CT CHEST W CON ? INDICATIONS:? hx of lung resection and fungal infection ? TECHNIQUE:? After the administration of intravenous contrast, 5 mm thick sections acquired from the pulmonary apices to the posterior costophrenic angles.? 1 mm axial lung, 5 mm thick coronal and sagittal reformats and 7 mm axial MIP were acquired.? For radiation dose reduction, the following was used:? automated exposure control, adjustment of mA and/or kV according to patient size.? ? COMPARISON:? [facility], CT, CT CHEST WITHOUT CONTRAST, 10/25/2020, 7:29.? [facility], CT, CT CHEST ABD PEL W CON, 02/06/2021, 12:08.? [facility], CT, CT CHEST WO CON, 05/14/2020, 10:01. ? FINDINGS:? Image quality:? Excellent.? ? Lungs and pleura:? Suture material in the left lung.? There is cavitation at the left apex which is similar to 02/06/2021.? There is surrounding consolidative opacity and pleural thickening which is also similar.? However, there is new patchy consolidative and ground-glass opacity at the left upper lobe, (3/100).? Small left pleural effusion.? Mild calcification at the left pleura.? No pneumothorax.? Central and peripheral airways are patent and normal in caliber.? ? Mediastinum:? Right-sided port with the catheter tip at the cavoatrial junction.? Heart size is normal.? No pericardial effusion.? Shotty mediastinal lymph nodes.? Thoracic aorta and central pulmonary arteries are normal in size.? Esophagus is normal in caliber. ?No hiatal hernia.? ? Bones and chest wall:? No suspicious bony lesions.? No vertebral body compression fractures.? Left supraclavicular node measuring 1.5 cm, (2/8), previously 1.6 cm.? Thyroid gland is unremarkable.? ? Abdomen:? Hypodensities in the liver are unchanged.? These likely represent benign cysts. ? IMPRESSION:? 1. New patchy consolidative and ground-glass opacity in the left upper lobe.? Suspect infectious/inflammatory etiology. ? 2. Similar cavitation at the left upper lung and left pleural thickening/pleural fluid. ? 3. Left supraclavicular enlarged node measuring 1.5 cm is similar.? Shotty mediastinal lymph nodes. ? ? Dictated by: Dalton Robles M.D. on 04/30/2021 at 14:56 ? ? Approved by: Dalton Robles M.D. on 04/30/2021 at 15:07?? ECG Data Attestation: I personally reviewed and interpreted this ECG as follows: Interpretation: Sinus rhythm Ventricular rate 98 Left bundle branch block Normal QTC Normal axis No ST T wave changes MDM Narrative Medical decision making narrative: Patient is nontoxic appearing but does have a leukocytosis. Rest of her labs are relatively unremarkable. I did discuss the case with her infectious disease provider who recommended some of the labs that were ordered during this visit. They were pending at the time of discharge in the patient understands this and so does the infectious disease provider. The CT scan was also ordered per her recommendation. Does show a new left upper lobe consolidation. I discussed this with the infectious disease provider as well. There is concern of bacterial verses a return to the aspergillosis and given her leukocytosis in the rest of her presenting symptoms bacterial consideration is somewhat high. Patient is tolerating oral intake. Was given 2 g of ceftriaxone and also an oral doxycycline here in the ER. Will send home with Omnicef and doxycycline per ID recommendations. She has an appointment scheduled tomorrow at 1100 hours in the morning the patient was given this information as well. Blood cultures were obtained. Patient was unable to provide a sputum sample. She was given strict return precautions and follow-up instructions. She expressed understanding and agreement. Discharge Plan Departure Patient Disposition: Home Clinical Impression: Pneumonia Instructions: DI for Pneumonia -- Adult Activity Restrictions/Additional Instructions: You have an appointment tomorrow with your infectious disease provider at 1100 hours in the morning. Please check in 15 minutes prior to this. Prescriptions for 2 antibiotics were electronically transmitted to [id number]. You will start taking these medications tomorrow. You can take Tylenol for any fevers or headaches. Be sure to increase your fluid intake. Return to the emergency department for any new or worsening symptoms. Prescriptions: New doxycycline hyclate 100 mg tablet 100 mg PO BID 7 Days Qty: 14 0RF cefdinir 300 mg capsule 300 mg PO BID 7 Days Qty: 14 0RF No Action docusate sodium 50 mg capsule 50 mg PO PRN PRN (Reason: Constipation) 0RF metoprolol succinate 50 mg tablet extended release 24 hr See Rx Instructions .ROUTE .COMPLEX Qty: 180 2RF Dose Instruction: TAKE ONE TABLET BY MOUTH TWICE DAILY Rx Instructions: TAKE ONE TABLET BY MOUTH TWICE DAILY amlodipine 2.5 mg tablet 2.5 mg PO DAILY Qty: 90 3RF omeprazole 40 mg Capsule,Delayed Release(Dr/Ec) 40 mg PO DAILY 0RF lidocaine-prilocaine 2.5-2.5 % Cream 1 ea topical DAILY Qty: 30 1RF posaconazole 100 mg Tablet,Delayed Release (Dr/Ec) 300 mg PO DAILY 0RF magnesium 250 mg Tablet 250 mg PO DAILY 0RF Referrals: Zack Mello, [Primary Care Provider] -
[2021-04-30 12:19] LABS: Troponin I < 0.012 ng/mL (0.01-0.034)
[2021-04-30 12:27] LABS: Anisocytosis 2+; Microcytosis 3+
[2021-04-30] MEDS: SODIUM CHLORIDE 0.9% 1,000 ML 1000 ML IV (12:42)
[2021-04-30] MEDS: ONDANSETRON 4 MG/2 ML INJ IV (12:42)
[2021-04-30 13:14] LABS: Lactate (Lactic Acid) 1.5 mmol/L (0.7-2.1)
[2021-04-30 13:46] LABS: Procalcitonin 0.06 ng/mL (<0.5)
--- NOTE | 2021-04-30 14:03 | DI.CT.S_ITS ---
PROCEDURE: CT CHEST W CON INDICATIONS: hx of lung resection and fungal infection TECHNIQUE: After the administration of intravenous contrast, 5 mm thick sections acquired from the pulmonary apices to the posterior costophrenic angles. 1 mm axial lung, 5 mm thick coronal and sagittal reformats and 7 mm axial MIP were acquired. For radiation dose reduction, the following was used: automated exposure control, adjustment of mA and/or kV according to patient size. COMPARISON: [facility], CT, CT CHEST WITHOUT CONTRAST, 10/25/2020, 7:29. [facility], CT, CT CHEST ABD PEL W CON, 02/06/2021, 12:08. [facility], CT, CT CHEST WO CON, 05/14/2020, 10:01. FINDINGS: Image quality: Excellent. Lungs and pleura: Suture material in the left lung. There is cavitation at the left apex which is similar to 02/06/2021. There is surrounding consolidative opacity and pleural thickening which is also similar. However, there is new patchy consolidative and ground-glass opacity at the left upper lobe, (3/100). Small left pleural effusion. Mild calcification at the left pleura. No pneumothorax. Central and peripheral airways are patent and normal in caliber. Mediastinum: Right-sided port with the catheter tip at the cavoatrial junction. Heart size is normal. No pericardial effusion. Shotty mediastinal lymph nodes. Thoracic aorta and central pulmonary arteries are normal in size. Esophagus is normal in caliber. No hiatal hernia. Bones and chest wall: No suspicious bony lesions. No vertebral body compression fractures. Left supraclavicular node measuring 1.5 cm, (2/8), previously 1.6 cm. Thyroid gland is unremarkable. Abdomen: Hypodensities in the liver are unchanged. These likely represent benign cysts. IMPRESSION: 1. New patchy consolidative and ground-glass opacity in the left upper lobe. Suspect infectious/inflammatory etiology. 2. Similar cavitation at the left upper lung and left pleural thickening/pleural fluid. 3. Left supraclavicular enlarged node measuring 1.5 cm is similar. Shotty mediastinal lymph nodes. Dictated by: Dalton Robles M.D. on 04/30/2021 at 14:56 Approved by: Dalton Robles M.D. on 04/30/2021 at 15:07
[2021-04-30 14:08] LABS: Adenovirus Not Detected (Not Detect); B. parapertussis Not Detected (Not Detecte); Bordetella pertussis Not Detected (Not Detecte); Chlamydophila pneumoniae Not Detected (Not Detect); Coronavirus 229E Not Detected (Not Detect); Coronavirus HKU1 Not Detected (Not Detect); Coronavirus NL 63 Not Detected (Not Detect); Coronavirus OC43 Not Detected (Not Detect); Human Metapneumovirus Not Detected (Not Detect); Human Rhinovirus/Enterovirus Not Detected (Not Detect); Influenza A Not Detected (Not Detect); Influenza B Not Detected (Not Detect); Mycoplasma pneumoniae Not Detected (Not Detect); Parainfluenza Virus 1 Not Detected (Not Detect); Parainfluenza Virus 2 Not Detected (Not Detect); Parainfluenza Virus 3 Not Detected (Not Detect); Parainfluenza Virus 4 Not Detected (Not Detect); Respiratory Syncytial Virus Not Detected (Not Detect); SARS- CoV-2 Not Detected (Not Detecte)
[2021-04-30 15:12] LABS: Appearance Urine UA CLEAR; Bilirubin Urine UA NEGATIVE (NEGATIVE); Color Urine UA YELLOW; Glucose Urine UA NEGATIVE (Negative); Ketones Urine UA NEGATIVE (NEGATIVE); Leukocyte Esterase Urine UA NEGATIVE (NEGATIVE); Nitrite Urine UA NEGATIVE (Negative); Occult Blood Urine UA 1+ (Negative); Protein Urine UA 1+ (Negative); Specific Gravity Urine UA <=1.005 (1.000-1.035); Urobilinogen Urine UA 0.2 E.U./dL (0.2); pH Urine UA 6.5 (4.5-8.0)
[2021-04-30 15:20] LABS: Bacteria Urine None Seen; Culture Indicated Urine Cult Not Indicated; RBC Urine 0-1/HPF (0-5/HPF); WBC Urine None Seen (0-5/HPF)
[2021-04-30 15:56] LABS: Alanine Aminotransferase 14 IU/L (<35); Alkaline Phosphatase 88 U/L (38-126); Aspartate Aminotransferase 26 IU/L (14-36); Bilirubin Total 0.8 mg/dL (0.2-1.3); Bilirubin Unconjugated 0.7 mg/dL (0.0-1.1); HEMOLYSIS 32 (0-50)
[2021-04-30] MEDS: cefTRIAXone 2,000 MG in SODIUM CHLORIDE 0.9% 100 ML 200 ML IV (16:00)
[2021-04-30] MEDS: DOXYCYCLINE HYCLATE 100 MG TABLET PO (17:05)
[2021-04-30] MEDS: ACETAMINOPHEN 325 MG TABLET 650 MG PO (17:05)
== END 2021-04-30 17:46 | disposition home or self-care (01) ==
PROVIDERS: Emergency Provider Emergency Medicine; Family Provider Family Medicine; PCP Family Medicine
DX: J18.9 Pneumonia, unspecified organism (principal); R11.2 Nausea with vomiting, unspecified; Z20.822 Contact with and (suspected) exposure to COVID-19
CPT/HCPCS: 36415; 71045; 71260; 80048; 80076; 81001; 82550; 83605; 84145; 84484; 85025; 87040; 87385; 87633; 87635; 87899; 93005; 96361; 96365; 96375; 99284; C9803; J0696; J1642; J2405; Q9967

== ENCOUNTER → 2021-06-03 12:54 | Outpatient (CLI) | payer OTHER, SELFPAY ==
--- NOTE | 2021-06-03 14:52 | DI.CT.S_ITS ---
PROCEDURE: CT CHEST ABD PEL W CON INDICATIONS: assess treatment response and/or disease progression TECHNIQUE: After the administration of oral and intravenous contrast, axial sections acquired from the supraclavicular neck to the pubic symphysis. Coronal and sagittal reformats were performed. For radiation dose reduction, the following was used: automated exposure control, adjustment of mA and/or kV according to patient size. COMPARISON: [facility], CT, CT CHEST ABD PEL W CON, 02/06/2021, 12:08. FINDINGS: Image quality: Excellent. CHEST: Lower Neck: No enlarged lymph nodes. Thyroid: Within normal limits. Axillae: No enlarged lymph nodes. Chest Wall: Unremarkable. Lungs and Airways: Slight interval decrease in cavitary lesion in the left apex post partial left pulmonary resection. The residual cavity and wall thickening is still significant. There is an air-fluid level within it. Focal areas of loculated fluid in the anterior and posterior left hemithorax are persistent. Reference image 28/2, where the anterior fluid measures 2.5 x 1.4 cm and the posterior fluid measures 2.4 x 3.2 cm. These areas are not significantly changed. Pleura: No pneumothorax or pleural effusions. Heart: Heart size is normal. No pericardial effusion. Thoracic Vessels: The aorta and pulmonary arteries demonstrate normal size. Mediastinum and Tiffani: No enlarged lymph nodes. Esophagus: No wall thickening. No hiatal hernia. ABDOMEN: Liver: Multiple liver hypodensities are stable.. Gallbladder: Unremarkable. Biliary ducts: Unremarkable. Pancreas: Unremarkable. Spleen: Unremarkable. Adrenal Glands: Unremarkable. Kidneys and Ureters: Unremarkable. Stomach and Bowel: Stomach, small bowel loops, and colon are unremarkable. Partial distal colectomy. Peritoneum: No abnormal intraperitoneal fluid. No free air. Ventral Wall: No hernia. Abdominal Nodes: No retroperitoneal or mesenteric adenopathy by size criteria. Vessels: Aorta and inferior vena cava are normal in size. PELVIS: Pelvic Organs: Uterus is surgically absent.. Bladder: Unremarkable. Pelvic Nodes: No enlarged lymph nodes. Miscellaneous: No inguinal hernias are seen. Bones: No lytic or blastic bony lesions. No compression fractures. IMPRESSION: 1. No evidence of progression of disease in the chest, abdomen, and pelvis. 2. The thick-walled cavitary lesion in the left apex is slightly decreased in size. Loculated areas of fluid in the pleural space in the left hemithorax anteriorly and posteriorly are stable. 3. Hypoattenuating lesions in the liver unchanged. Dictated by: Javad Lipscomb M.D. on 06/03/2021 at 17:12 Approved by: Javad Lipscomb M.D. on 06/03/2021 at 17:21
== END ==
PROVIDERS: Family Provider Family Medicine; PCP Family Medicine; Referring Provider Internal Medicine Hematology & Oncology; Visit Provider Internal Medicine Hematology & Oncology
DX: C57.00 Malignant neoplasm of unspecified fallopian tube (principal); K76.9 Liver disease, unspecified
CPT/HCPCS: 71260; 74177

== ENCOUNTER → 2021-09-02 15:11 | Outpatient (CLI) | payer OTHER, SELFPAY ==
--- NOTE | 2021-09-02 15:13 | DI.RAD.S_ITS ---
PROCEDURE: XR SACRUM COCCYX MIN 2V INDICATIONS: eval L side coccyx TTP/pain, no trauma. Cancer hx TECHNIQUE: 3 views of the sacrum and coccyx acquired. COMPARISON: None. FINDINGS: Bones: No fractures or dislocations. No suspicious bony lesions. Soft tissues: Visualized bowel gas pattern is normal. No suspicious soft tissue densities. Multiple surgical clips and bowel anastomotic staple line noted. IMPRESSION: No acute osseous lesion. If symptoms and/or clinical suspicion for pathology persists, further assessment with repeat radiographs (7-10 days) or advanced imaging (e.g. CT, MRI or bone scan) should be considered. Dictated by: Roberta Birmingham MD, PhD on 09/02/2021 at 16:04 Approved by: Roberta Birmingham MD, PhD on 09/02/2021 at 16:04
== END ==
PROVIDERS: Family Provider Family Medicine; PCP Family Medicine; Referring Provider Registered Nurse Diabetes Educator; Visit Provider Registered Nurse Diabetes Educator
DX: M53.3 Sacrococcygeal disorders, not elsewhere classified (principal)
CPT/HCPCS: 72220

== ENCOUNTER → 2021-09-09 08:48 | Outpatient (CLI) | payer OTHER, SELFPAY | PROVIDERS: Family Provider Family Medicine; PCP Family Medicine; Referring Provider Internal Medicine Infectious Disease; Visit Provider Internal Medicine Infectious Disease | DX: B44.9 Aspergillosis, unspecified (principal) | CPT/HCPCS: 87070; 87077; 87186; 87205 ==

== ENCOUNTER → 2021-09-11 08:54 | Outpatient (CLI) | payer OTHER, SELFPAY ==
--- NOTE | 2021-09-11 | DI.MRI.S_ITS ---
PROCEDURE: MR PELIS WO/W CON INDICATIONS: RULE OUT CANCER METS TECHNIQUE: Noncontrast coronal T1 spin echo and STIR, sagittal T1 spin echo with fat saturation and STIR, axial T1 spin echo and T2 fast spin echo with fat saturation. After the administration of contrast, axial/sagittal/coronal T1 spin echo with fat saturation through the sacrum. COMPARISON: [facility], CT, CT CHEST ABD PEL W CON, 06/03/2021, 14:52. [facility], CR, XR SACRUM COCCYX MIN 2V, 09/02/2021, 15:28. FINDINGS: Image quality: Excellent. Bones: The visualized bone marrow demonstrates normal signal on all sequences. The overlying cortex appears intact. No abnormal intraosseous enhancement. Soft tissues: No soft tissue masses are visualized. The scanned muscles demonstrate normal overall bulk and internal signal. Subcutaneous tissues appear normal as well. No abnormal soft tissue enhancement. IMPRESSION: 1. Normal marrow signal without suspicious lesions or occult fractures. 2. No abnormal enhancement in the bones or soft tissue. Dictated by: Maggi Miranda M.D. on 09/11/2021 at 15:04 Approved by: Maggi Miranda M.D. on 09/11/2021 at 15:15
== END ==
PROVIDERS: Family Provider Family Medicine; PCP Family Medicine; Referring Provider Registered Nurse Diabetes Educator; Visit Provider Registered Nurse Diabetes Educator
DX: C57.00 Malignant neoplasm of unspecified fallopian tube (principal)
CPT/HCPCS: 72197; A9579

== ENCOUNTER → 2021-10-08 10:43 | Outpatient (CLI) | payer OTHER, SELFPAY ==
--- NOTE | 2021-10-08 10:44 | DI.CT.S_ITS ---
PROCEDURE: CT CHEST ABD PEL W CON INDICATIONS: fallopian tube cancer, to evalute response TECHNIQUE: After the administration of oral and intravenous contrast, axial sections acquired from the supraclavicular neck to the pubic symphysis. Coronal and sagittal reformats were performed. For radiation dose reduction, the following was used: automated exposure control, adjustment of mA and/or kV according to patient size. COMPARISON: [facility], MR, MR PELVIS WO/W CON, 09/11/2021, 9:04. [facility], CT, CT CHEST WITHOUT CONTRAST, 10/25/2020, 7:29. [facility], CT, CT CHEST WITH CONTRAST, 08/29/2020, 7:59. CT, CT ABDOMEN PELVIS W CON, 04/15/2020, 22:16. [facility], CT, CT CHEST WITHOUT CONTRAST, 06/28/2020, 13:01. [facility], CT, CT CHEST ABD PEL W CON, 02/06/2021, 12:08. [facility], CT, CT CHEST WITH CONTRAST, 05/05/2021, 11:19. [facility], CT, CT CHEST ABD PEL W CON, 06/03/2021, 14:52. FINDINGS: Image quality: Excellent. CHEST: Lower Neck: No enlarged lymph nodes. Thyroid: Within normal limits. Axillae: No enlarged lymph nodes. Chest Wall: Unremarkable. There is a Port-A-Cath in the right anterior chest. Lungs and Airways: Postsurgical changes in the left hemithorax with associated volume loss. There are multiple new nodules or nodular infiltrates in the right upper lobe and lingula. Reference lesions are listed in the following: Nodule 1: 0.7 cm; right apex anterior; series 5, image 82. Nodule 2: 1.1 x 0.9 cm; right upper lobe; series 5, image 120. Nodule 3: 1.0 cm; right upper lobe posterior segment; series 5, image 132. There is subpleural septal thickening. A surgical scar is noted in the left upper lobe. Right lung remains clear. Pleura: There is pleural thickening and loculated pleural effusion in the right hemithorax, similar in size. A small hiatalpneumothorax is seen in the right lung base, unchanged. Heart: Heart size is normal. No pericardial effusion. Thoracic Vessels: The aorta and pulmonary arteries demonstrate normal size. Mediastinum and Tiffani: No enlarged lymph nodes. Esophagus: No wall thickening. Small hiatal hernia. ABDOMEN: Liver: Liver is normal in size. There are multiple hypodense nodules in liver, unchanged. The largest lesion is in the posterior segment of the right hepatic lobe laterally measuring 1.2 x 1.9 cm. This may be a liver cyst. Other lesions are too small to further characterize. Gallbladder: Unremarkable. Biliary ducts: Unremarkable. Pancreas: Unremarkable. Spleen: Unremarkable. Adrenal Glands: Unremarkable. Kidneys and Ureters: There is a 4 mm nonobstructive stone in left kidney. No hydronephrosis.. Stomach and Bowel: Stomach, small bowel loops, and colon are unremarkable. Peritoneum: There is a small amount of intraperitoneal fluid in gravity dependent peritoneal cavity, new since the last exam. No free air. Ventral Wall: No hernia. Abdominal Nodes: No retroperitoneal or mesenteric adenopathy by size criteria. Vessels: Aorta and inferior vena cava are normal in size. PELVIS: Pelvic Organs: Unremarkable. Small amount of free fluid is noted in pelvis. Bladder: Unremarkable. Pelvic Nodes: There is a 2.2 x 2.3 cm soft tissue nodule anterior to the left external iliac vessels, most likely a metastatic lymph node. It appears increased in size. Miscellaneous: No inguinal hernias are seen. Bones: Unremarkable. IMPRESSION: 1. There are multiple new nodules or nodular infiltrates in the left upper lobe and lingula. Differential diagnoses are metastatic disease, inflammatory or infectious nodules. 2. Stable pleural thickening and loculated pleural effusion in the left hemithorax. There is a small hydropneumothorax in the left lung base, unchanged. 3. Small amount of ascites, new since the last exam. 4. Interval enlargement of a left external iliac lymph node, consistent with metastasis. 5. Stable hypodense nodules in liver. Dictated by: Augusto Katz M.D. on 10/08/2021 at 17:45 Approved by: Augusto Katz M.D. on 10/09/2021 at 9:50
== END ==
PROVIDERS: Family Provider Family Medicine; PCP Family Medicine; Referring Provider Internal Medicine Hematology & Oncology; Visit Provider Internal Medicine Hematology & Oncology
DX: C57.00 Malignant neoplasm of unspecified fallopian tube (principal); R91.8 Other nonspecific abnormal finding of lung field; R59.0 Localized enlarged lymph nodes; K76.9 Liver disease, unspecified; J90 Pleural effusion, not elsewhere classified; J94.8 Other specified pleural conditions; R18.8 Other ascites
CPT/HCPCS: 71260; 74177; Q9967

== ENCOUNTER → 2021-11-03 10:14 | Outpatient (CLI) | payer OTHER, SELFPAY ==
[2021-11-03 11:07] LABS: COVID19 -Nasal RAPID Negative (Negative)
== END ==
PROVIDERS: Family Provider Family Medicine; PCP Family Medicine; Referring Provider Obstetrics & Gynecology; Visit Provider Obstetrics & Gynecology
DX: Z20.822 Contact with and (suspected) exposure to COVID-19 (principal)
CPT/HCPCS: 87635; C9803

== ENCOUNTER → 2022-03-31 08:31 | Outpatient (CLI) | payer OTHER, SELFPAY ==
--- NOTE | 2022-03-31 10:13 | DI.CT.S_ITS ---
PROCEDURE: CT CHEST ABD PEL W CON INDICATIONS: ovarian cancer, lung aspergillosis TECHNIQUE: After the administration of oral and intravenous contrast, axial sections acquired from the supraclavicular neck to the pubic symphysis. Coronal and sagittal reformats were performed. For radiation dose reduction, the following was used: automated exposure control, adjustment of mA and/or kV according to patient size. COMPARISON: [facility], CT, CT CHEST ABD PEL W CON, 10/08/2021, 12:37. [facility], CT, CT CHEST ABD PEL W CON, 06/03/2021, 14:52. FINDINGS: Image quality: Excellent. CHEST: Lower Neck: No enlarged lymph nodes. Thyroid: Unremarkable. Axillae: No enlarged lymph nodes. Chest Wall: Unremarkable. Lungs and Airways: Trace nodular radiopacities are visualized within the right middle lobe which are new when compared with the prior CT dated October 08, 2021. The right lung is otherwise clear. Pulmonary scar, pleural thickening, and central cavitation is redemonstrated within the posterior left lung. Overall findings are similar in extent to the study dated October 08, 2021. There are decreased patchy airspace opacities within the aerated portions of the left upper lobe when compared with the prior study. No new suspicious pulmonary mass lesions. Pleura: No pneumothorax or pleural effusions. Heart: Heart size is normal. No pericardial effusion. Thoracic Vessels: The aorta and pulmonary arteries demonstrate normal size. Mediastinum and Tiffani: No enlarged lymph nodes. Esophagus: No wall thickening. There is a small hiatal hernia. ABDOMEN: Liver: Unremarkable. Gallbladder: Contracted. Biliary ducts: Unremarkable. Pancreas: Unremarkable. Spleen: Unremarkable. Adrenal Glands: Unremarkable. Kidneys and Ureters: Unremarkable. A 4 mm nonobstructing calculus is present within the midpole of left kidney. Stomach and Bowel: Stomach, small bowel loops, and colon are unremarkable. Peritoneum: Trace low-density free fluid is present within the pelvis, as before. Ventral Wall: No hernia. Abdominal Nodes: No retroperitoneal or mesenteric adenopathy by size criteria. Vessels: Aorta and inferior vena cava are normal in size. PELVIS: Pelvic Organs: Unremarkable. Bladder: Unremarkable. Pelvic Nodes: No enlarged lymph nodes. Miscellaneous: No inguinal hernias are seen. Bones: Unremarkable. IMPRESSION: 1. Decreased patchy pulmonary opacities within the left lung suggesting partial resolution of the previous fungal pneumonia. 2. Trace nodular radiopacities within the right lung which may represent indolent fungal infection which is new when compared with the CT from October 08, 2021. 3. No findings to suggest tumor recurrence or new metastasis. Dictated by: Barbra Khan M.D. on 03/31/2022 at 11:07 Approved by: Barbra Khan M.D. on 03/31/2022 at 11:14
== END ==
PROVIDERS: Family Provider Family Medicine; PCP Family Medicine; Referring Provider Internal Medicine Hematology & Oncology; Visit Provider Internal Medicine Hematology & Oncology
DX: C57.00 Malignant neoplasm of unspecified fallopian tube (principal); B44.1 Other pulmonary aspergillosis; K44.9 Diaphragmatic hernia without obstruction or gangrene; N20.0 Calculus of kidney
CPT/HCPCS: 71260; 74177

== ENCOUNTER → 2022-07-14 09:27 | Outpatient (CLI) | payer OTHER, SELFPAY ==
--- NOTE | 2022-07-14 09:28 | DI.CT.S_ITS ---
PROCEDURE: CT CHEST ABD PEL W CON INDICATIONS: ovarian cancer. Pulmonary aspergillosis. TECHNIQUE: After the administration of oral and intravenous contrast, axial sections acquired from the supraclavicular neck to the pubic symphysis. Coronal and sagittal reformats were performed. For radiation dose reduction, the following was used: automated exposure control, adjustment of mA and/or kV according to patient size. COMPARISON: [facility], CT, CT CHEST ABD PEL W CON, 03/31/2022, 10:13. FINDINGS: Image quality: Excellent. CHEST: Lower Neck: No enlarged lymph nodes. Thyroid: Within normal limits. Axillae: No enlarged lymph nodes. Chest Wall: Unremarkable. Lungs and Airways: Left upper lobe wedge resection. Resolved right middle lobe nodules. A few region of secretion impaction. Similar ground-glass in the anterior left upper lobe. Pleura: Left-sided pleural thickening at the apex, with associated pneumothorax, presumably trapped lung. Heart: Heart size is normal. No pericardial effusion. Thoracic Vessels: The aorta and pulmonary arteries demonstrate normal size. Mediastinum and Tiffani: No enlarged lymph nodes. Esophagus: No wall thickening. No hiatal hernia. ABDOMEN: Liver: Stable hypoattenuating liver lesions, presumably cysts. Gallbladder: Unremarkable. Biliary ducts: Unremarkable. Pancreas: Unremarkable. Spleen: Unremarkable. Adrenal Glands: Unremarkable. Kidneys and Ureters: 4 millimeter non-obstructing stone on the left. No hydronephrosis.. Stomach and Bowel: Stomach, small bowel loops, and colon are unremarkable. Prior partial bowel resection. Peritoneum: No abnormal intraperitoneal fluid. No free air. Ventral Wall: No hernia. Abdominal Nodes: No retroperitoneal or mesenteric adenopathy by size criteria. Vessels: Aorta and inferior vena cava are normal in size. PELVIS: Pelvic Organs: Prior hysterectomy and bilateral salpingo oophorectomy. Bladder: Unremarkable. Pelvic Nodes: Growing left external iliac chain node measuring 3.8 x 2.9 centimeters, previously 2.9 x 2.6 centimeters. Miscellaneous: No inguinal hernias are seen. Bones: Unremarkable. IMPRESSION: 1. Growing left external iliac chain lymph node measuring 3.8 x 2.9 centimeter, previously 2.9 x 2.6 centimeters. 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 2. Stable changes in the left lung apex, with left upper lobe wedge resection, associated pleural thickening and trapped lung. 3. Resolved right middle lobe infectious process. Dictated by: Jeronimo Ocasio M.D. on 07/14/2022 at 13:21 Approved by: Jeronimo Ocasio M.D. on 07/14/2022 at 13:30
== END ==
PROVIDERS: Family Provider Family Medicine; PCP Family Medicine; Referring Provider Internal Medicine Hematology & Oncology; Visit Provider Internal Medicine Hematology & Oncology
DX: C57.00 Malignant neoplasm of unspecified fallopian tube (principal); K76.9 Liver disease, unspecified; N20.0 Calculus of kidney; Z90.710 Acquired absence of both cervix and uterus; Z90.722 Acquired absence of ovaries, bilateral
CPT/HCPCS: 71260; 74177; Q9967

== ENCOUNTER → 2022-10-08 11:45 | Outpatient (CLI) | payer OTHER, SELFPAY ==
--- NOTE | 2022-10-08 14:12 | DI.CT.S_ITS ---
PROCEDURE: CT CHEST ABD PEL W CON INDICATIONS: ovarian cancer. Pulmonary aspergillosis TECHNIQUE: After the administration of oral and intravenous contrast, axial sections acquired from the supraclavicular neck to the pubic symphysis. Coronal and sagittal reformats were performed. For radiation dose reduction, the following was used: automated exposure control, adjustment of mA and/or kV according to patient size. COMPARISON: [facility], CT, CT CHEST ABD PEL W CON, 03/31/2022, 10:13. [facility], CT, CT CHEST ABD PEL W CON, 07/14/2022, 11:24. FINDINGS: CHEST: Lower Neck: Similar enlarged left supraclavicular lymph node, 1.4 cm (2/8). Axillae: No enlarged lymph nodes. Chest Wall: Right chest port present with tip of the catheter terminating at the upper right atrium. Lungs: Left upper lung wedge resection. Previously demonstrated predominantly air-filled cavity at the posterior aspect of the staple line now is largely fluid-filled. Elsewhere left pleural fluid/thickening appears similar. Heart: No pericardial effusion. Thoracic Vessels: The aorta and pulmonary arteries demonstrate normal size. Mediastinum and Tiffani: No enlarged lymph nodes. Esophagus: No wall thickening. ABDOMEN: Liver: Similar small hypodense foci present. No definite new suspicious lesion. Gallbladder: Unremarkable. Biliary ducts: Unremarkable. Pancreas: Unremarkable. Spleen: Unremarkable. Adrenal Glands: Unremarkable. Kidneys and Ureters: No hydronephrosis. Small left kidney nonobstructing stone redemonstrated. Stomach and Bowel: No bowel obstruction. Peritoneum: No free air. Small amount of nonspecific pelvic free fluid as before. Abdominal Nodes: No retroperitoneal or mesenteric adenopathy by size criteria. Vessels: Aorta and inferior vena cava are normal in size. PELVIS: Pelvic Organs: The uterus is not visualized and is presumed surgically absent. Bladder: Unremarkable. Pelvic Nodes: Similar left external iliac chain katrin mass, 3.8 x 3.0 cm (2/102) previously 3.8 x 2.9 cm. Bones: Multilevel degenerative change of the visualized spine. IMPRESSION: 1. No significant interval change in previously demonstrated left external iliac adenopathy. 2. Left supraclavicular adenopathy appears similar to before. 3. Previously demonstrated cavity adjacent to the left upper lung staple line now appears largely fluid-filled, unclear etiology or clinical significance. Attention on follow-up is recommended. Dictated by: Mark Mackey M.D. on 10/09/2022 at 15:41 Approved by: Mark Mackey M.D. on 10/09/2022 at 16:08
== END ==
PROVIDERS: Family Provider Family Medicine; PCP Family Medicine; Referring Provider Internal Medicine Hematology & Oncology; Visit Provider Internal Medicine Hematology & Oncology
DX: C57.00 Malignant neoplasm of unspecified fallopian tube (principal); B44.1 Other pulmonary aspergillosis; R59.1 Generalized enlarged lymph nodes
CPT/HCPCS: 71260; 74177; Q9967

== ENCOUNTER → 2023-02-15 07:40 | Outpatient (CLI) | payer OTHER, SELFPAY ==
--- NOTE | 2023-02-15 | DI.MG.S_ITS ---
BILATERAL DIGITAL SCREENING MAMMOGRAM 3D/2D WITH CAD: 02/15/2023 CLINICAL: Routine screening. Family history of breast cancer. Comparison is made to exams dated: 05/22/2016 mammogram and 05/22/2015 mammogram - outside location. There are scattered areas of fibroglandular density in both breasts (category b / 25%-50% glandular tissue). Current study was also evaluated with a Computer Aided Detection (CAD) system. There is a biopsy clip in the left breast. No significant masses, calcifications, or other findings are seen in either breast. There has been no significant interval change. IMPRESSION: NEGATIVE There is no mammographic evidence of malignancy. A 1 year screening mammogram is recommended. Based on the Tyrer Cuzick model (a risk assessment model) the patient's lifetime risk is 5.9% and her 10 year risk is 2.3%. According to the ACR, ACS, and NCCN guidelines, an annual breast MRI exam along with mammogram is recommended if the patient's lifetime risk is 20% or greater. This exam was interpreted at Station ID: [id number]. NOTE: For mammograms, a report in lay terms will be sent to the patient. Approximately 15% of breast malignancies will not be visualized mammographically. In the management of a palpable breast mass, a negative mammogram must not discourage biopsy of a clinically suspicious lesion. Electronically Signed By: Dalton aldridge/rosendo:02/24/2023 17:36:09 letter sent: Normal Exam ACR BI-RADS Category 1: Negative [id number]
== END ==
PROVIDERS: Family Provider Family Medicine; PCP Family Medicine; Referring Provider Family Medicine; Visit Provider Family Medicine
DX: Z12.31 Encounter for screening mammogram for malignant neoplasm of breast (principal); Z80.3 Family history of malignant neoplasm of breast
CPT/HCPCS: 77063; 77067

== ENCOUNTER → 2024-03-13 07:38 | Outpatient (CLI) | payer OTHER, SELFPAY ==
--- NOTE | 2024-03-13 07:40 | DI.MG.S_ITS ---
BILATERAL DIGITAL SCREENING MAMMOGRAM 3D/2D WITH CAD: 03/13/2024 CLINICAL: Routine screening. Family history of breast cancer. Comparison is made to exams dated: 02/15/2023 mammogram - [facility], 05/22/2016 mammogram, and 05/22/2015 mammogram - outside location. There are scattered areas of fibroglandular density (category b / 25%-50% glandular tissue). Current study was also evaluated with a Computer Aided Detection (CAD) system. There is a biopsy clip in the left breast. No significant masses, calcifications, or other findings are seen in either breast. There has been no significant interval change. IMPRESSION: NEGATIVE There is no mammographic evidence of malignancy. A 1 year screening mammogram is recommended. Based on the Tyrer Cuzick model (a risk assessment model) the patient's lifetime risk is 5.7% and her 10 year risk is 2.4%. According to the ACR, ACS, and NCCN guidelines, an annual breast MRI exam along with mammogram is recommended if the patient's lifetime risk is 20% or greater. This exam was interpreted at Station ID: [id number]. NOTE: For mammograms, a report in lay terms will be sent to the patient. Approximately 15% of breast malignancies will not be visualized mammographically. In the management of a palpable breast mass, a negative mammogram must not discourage biopsy of a clinically suspicious lesion. Electronically Signed By: Wayne bowden/rosendo:03/13/2024 17:09:30 letter sent: Normal Exam ACR BI-RADS Category 1: Negative
[2024-03-13 09:21] LABS: Cholesterol 211 mg/dL (140-199); HDL Cholesterol 52 mg/dL (40-60); LDL Cholesterol Calculated 136 mg/dL (<100); Triglycerides 116 mg/dL (35-150)
== END ==
LOC: MAMMO 07:39
PROVIDERS: PCP Family Medicine; Referring Provider Family Medicine; Visit Provider Family Medicine
DX: Z12.31 Encounter for screening mammogram for malignant neoplasm of breast (principal); Z80.3 Family history of malignant neoplasm of breast; I10 Essential (primary) hypertension; R73.9 Hyperglycemia, unspecified; D50.9 Iron deficiency anemia, unspecified
CPT/HCPCS: 36415; 77063; 77067; 80061